=== PATIENT | male | born 1955 | race Caucasian/White ===

== ENCOUNTER 2022-07-01 07:59 | Outpatient (CLI) | payer MEDICARE, BC, SELFPAY ==
--- NOTE | 2022-07-01 08:15 | CRLHL7_ITS ---
For Patients: As a result of the Century Cures Act, medical imaging exams and procedure reports are released immediately into your electronic medical record. You may view this report before your referring provider. If you have questions, please contact your health care provider. Indication: Left hip pain Procedure : Informed consent was obtained. The site was marked. Time-out was performed. The skin of the left hip was cleansed with ChloraPrep. A sterile drape was placed. 8 cc of 1 percent lidocaine was administered for superficial anesthesia. Subsequently a 22 gauge spinal needle was introduced into the left hip joint under intermittent fluoroscopic guidance. 7 cc 1 percent lidocaine and 2 cc 40 milligram/cc Depo-Medrol then injected into the left hip joint. The needle was removed and hemostasis achieved with direct pressure. A dressing was placed. The patient tolerated the procedure well without immediate complication. Total fluoroscopy time 11 seconds. Impression: Successful fluoroscopically guided left hip injection with 80 milligrams of Depo-Medrol. Dictated by Hansel Chi MD @ 07/01/2022 9:18:43 AM (Electronically Signed)
== END 2022-07-01 08:00 | disposition home or self-care (01) ==
PROVIDERS: PCP Family Medicine; Visit Provider Orthopaedic Surgery Sports Medicine
DX: M25.552 Pain in left hip (principal)
CPT/HCPCS: 20610; 77002; J1030

== ENCOUNTER 2022-07-14 06:26 | Day surgery (SDC) | payer MEDICARE, BC, SELFPAY ==
[2022-07-14] VITALS (8 sets, daily range): BP systolic 119–139; BP diastolic 69–83; PULSE 57–61; RESP 16–18; TEMP 36.4–37.1; O2SAT 95–98; BMI 35.6
[2022-07-14] MEDS: BUPIVACAINE 0.5% 30 ML INJECTION (06:50)
[2022-07-14] MEDS: ETHYL CHLORIDE 1 APPLICATION 1 APPLIC TOPICAL (06:50)
--- NOTE | 2022-07-14 07:05 | SUR.PREOP ---
SAME DAY SURGERY LOCAL INJECTION SITE VERIFICATION WAS PERFORMED BY SURGEON AND PATIENT PRIOR TO LOCAL ANESTHETIC BEING INJECTED TO OPERATIVE SITE.
[2022-07-14] MEDS: NEOMYCIN/BACITRACIN/POLYMYXIN B 1 APPLIC TOPICAL (07:42)
--- NOTE | 2022-07-14 08:38 | PM.ORPRC ---
Procedure Note Date of procedure: 07/14/22 Procedure: PREOPERATIVE DIAGNOSIS: 1. Left carpal tunnel syndrome POSTOPERATIVE DIAGNOSIS: 1. Left carpal tunnel syndrome PROCEDURE: 1. Left open carpal tunnel release SURGEON: Shukri Ortiz MD. TRAFFIC OBSERVER: Armand Mac PA-C ANESTHESIA: Local anesthetic (50:50 mixture of 2% lidocaine with epi and 0.5% marcaine plain) IMPLANTS: None EBL: 2 mL TOURNIQUET: None COMPLICATIONS: None evident INDICATIONS: The patient is a pleasant 67-year-old male who has experienced left hand numbess/tingling affecting the radial 3.5 digits for multiple months. It has progressively gotten worse. Nonoperative management has been tried and failed, and therefore surgery was recommended. DESCRIPTION OF PROCEDURE: Following a thorough discussion of risks, benefits, and alternatives consent was obtained and the operative extremity was marked. The patient was brought to the operating room and placed supine on the operating table. Local anesthesia induction was undertaken in preop holding. No antibiotics were administered as this was planned to be a local case only. Proper time-out was performed identifying proper patient, site, and procedure. The operative extremity was prepped and draped in the appropriate sterile fashion using ChloraPrep. An incision was made in line with the radial border of the ring finger beginning 1 cm distal to the distal wrist crease and progressing for another 2.5cm distal. Caution was taken to stay proximal to Mcneill's cardinal line. Sharp incision through the skin, subcutaneous tissue, and palmar fascia was performed. The thenar musculature was bluntly elevated off the transverse carpal ligament. The ligament was directly visualized, and divided sharply with a 15 blade. This was released from its most proximal to the most distal extent. Metzenbaum scissor was also utilized to release the fascia extension proximally. We confirmed complete release of the transverse carpal ligament. Closure was performed with 4-O nylon in interrupted fashion. Soft dressings were applied, and the patient was transferred to the recovery room in stable condition. PLAN: 1. Encourage elevation of the operative extremity. 2. Range of motion of the fingers and hand/wrist as tolerated. 3. Ibuprofen/acetaminophen and/or Percocet as needed for pain control. 4. Follow up with PA visit or nurse visit in 12-16 days for wound check and suture removal.
== END 2022-07-14 08:02 | disposition home or self-care (01) ==
PROVIDERS: PCP Family Medicine; Visit Provider Orthopaedic Surgery Sports Medicine
PROC: (CPT 64721; principal; 2022-07-14 07:30)
DX: G56.02 Carpal tunnel syndrome, left upper limb (principal)
CPT/HCPCS: 64721; J3490

== ENCOUNTER 2022-09-01 06:10 | Day surgery (SDC) | payer MEDICARE, BC, SELFPAY ==
[2022-09-01] VITALS (7 sets, daily range): BP systolic 128–145; BP diastolic 70–92; PULSE 59–65; RESP 14–18; TEMP 36.2–36.5; O2SAT 9–97; BMI 35.4
[2022-09-01] MEDS: BUPIVACAINE 0.5% 30 ML INJECTION (07:00)
--- NOTE | 2022-09-01 07:26 | SUR.PREOP ---
SAME DAY SURGERY LOCAL INJECTION SITE VERIFICATION WAS PERFORMED BY SURGEON/PA AND PATIENT PRIOR TO LOCAL ANESTHETIC BEING INJECTED TO OPERATIVE SITE.
--- NOTE | 2022-09-01 07:29 | P.ORPRC_ITS ---
Procedure Note Date of procedure: 09/01/22 Procedure: PREOPERATIVE DIAGNOSIS: 1. Right carpal tunnel syndrome POSTOPERATIVE DIAGNOSIS: 1. Right carpal tunnel syndrome PROCEDURE: 1. Right open carpal tunnel release SURGEON: Shukri Ortiz MD. SENIOR HARDWARE DESIGN ENGINEER: Armand Mac PA-C ANESTHESIA: Local anesthetic (50:50 mixture of 1% lidocaine with epi and 0.5% marcaine plain) IMPLANTS: None EBL: 2 mL TOURNIQUET: None COMPLICATIONS: None evident INDICATIONS: The patient is a pleasant 67-year-old male who has experienced right hand numbess/tingling affecting the radial 3.5 digits for multiple months. It has progressively gotten worse. Nonoperative management has been tried and failed, and therefore surgery was recommended. DESCRIPTION OF PROCEDURE: Following a thorough discussion of risks, benefits, and alternatives consent was obtained and the operative extremity was marked. The patient was brought to the operating room and placed supine on the operating table. Local anesthesia induction was undertaken in preop holding. No antibiotics were administered as this was planned to be a local case only. Proper time-out was performed identifying proper patient, site, and procedure. The operative extremity was prepped and draped in the appropriate sterile fashion using ChloraPrep. An incision was made in line with the radial border of the ring finger beginning 1 cm distal to the distal wrist crease and progressing for another 2.5cm distal. Caution was taken to stay proximal to Mcneill's cardinal line. Sharp incision through the skin, subcutaneous tissue, and palmar fascia was performed. The thenar musculature was bluntly elevated off the transverse carpal ligament. The ligament was directly visualized, and divided sharply with a 15 blade. This was released from its most proximal to the most distal extent. Metzenbaum scissor was also utilized to release the fascia extension proximally. We confirmed complete release of the transverse carpal ligament. Closure was performed with 4-O nylon in interrupted fashion. Soft dressings were applied, and the patient was transferred to the recovery room in stable condition. PLAN: 1. Encourage elevation of the operative extremity. 2. Range of motion of the fingers and hand/wrist as tolerated. 3. Ibuprofen/acetaminophen and/or Percocet as needed for pain control. 4. Follow up with PA visit or nurse visit in 12-16 days for wound check and suture removal.
== END 2022-09-01 07:50 | disposition home or self-care (01) ==
PROVIDERS: PCP Family Medicine; Visit Provider Orthopaedic Surgery Sports Medicine
PROC: (CPT 64721; principal; 2022-09-01 07:15)
DX: G56.01 Carpal tunnel syndrome, right upper limb (principal)
CPT/HCPCS: 64721; J3490

== ENCOUNTER 2023-01-03 08:45 | Outpatient (RCR) | payer MEDICARE, BC, SELFPAY | END 2023-05-03 23:59 | disposition home or self-care (01) | PROVIDERS: PCP Family Medicine; Visit Provider Student in an Organized Health Care Education/Training Program | DX: R47.01 Aphasia (principal); I63.412 Cerebral infarction due to embolism of left middle cerebral artery; Z98.890 Other specified postprocedural states; M25.552 Pain in left hip; R53.1 Weakness; Z51.89 Encounter for other specified aftercare | CPT/HCPCS: 92507; 92523; 97165; 97535 ==

== ENCOUNTER 2023-08-13 09:21 | Outpatient (CLI) | payer MEDICARE, BC, SELFPAY ==
--- OUTSIDE RECORDS SUMMARY | 2023-08-13 09:29 | XMS_ITS | Clinical Summary ---
Author Name Unknown Organization [facility] Address [place], [place] [address] Care Team Providers Care Mortgage Clerk Name Role Phone Brian Garcia MD Primary Care Provider Hansel Buchanan MD Unavailable Soraya Wang Unavailable [phone] Allergies No known active allergies Medications Medication Sig Dispensed Refills Start Date End Date Status aspirin (ECOTRIN) 81 mg enteric coated tablet Take 1 tablet by mouth once daily with a meal. 0 5 Active nitroglycerin (NITROSTAT) 0.4 mg sublingual tabletIndications:C oronary artery disease due to lipid rich plaque PLACE 1 TABLET UNDER TONGUE EVERY 5 MINUTES IF NEEDED FOR CHEST PAIN. 25 Tablet 1 2 Active blood-glucose meterIndications:Ty pe 2 diabetes mellitus with other specified complication, without long-term current use of insulin (HC) Inject subcutaneous. Dispense meter, test strips, lancets covered by pt ins. E11.9 NIDDM type II - Test 1 time/day 1 Each 0 3 Active blood sugar diagnostic (Blood Glucose Test) stripIndications:Ty pe 2 diabetes mellitus with other specified complication, without long-term current use of insulin (HC) Test one time per day. 100 Each 3 3 Active acetaminophen (TYLENOL) 325 mg tablet Take 2 Tablets (650 mg) by mouth every 6 hours. Max acetaminophen dose: 4000mg in 24 hrs. 0 3 Active metoprolol succinate (TOPROL XL) 50 mg sustained-release tabletIndications:C oronary artery disease due to lipid rich plaque Take 1 Tablet (50 mg) by mouth once daily. 90 Tablet 3 3 Active rosuvastatin (CRESTOR) 40 mg tabletIndications:M ixed hyperlipidemia TAKE 1 TABLET DAILY 90 Tablet 3 3 Active CPAPIndications:JO (obstructive sleep apnea) CPAP machine for home use at pressure: 5-16 cmw , Heated humidifier x 1 q 5 yr, Humidifier chamber x 1 q 6 mo, nasal mask x1 q 3mos, with cushion x 2 q mo, Heated tubing x 1 q 3 mo, Headgear x 1 q 6 mo, Filters: Disposable x 2 q mo non-disposable filters x1 q 6mo, Length of Need: 99 months, Frequency of use: Daily 1 Each 11 3 Active metFORMIN (GLUCOPHAGE XR) 500 mg Extended-Release tabletIndications:T ype 2 diabetes mellitus with other specified complication, without long-term current use of insulin (HC) Take 2 Tablets (1,000 mg) by mouth once daily with evening meal. 180 Tablet 1 4 Active empagliflozin (JARDIANCE) 10 mg tabletIndications:T ype 2 diabetes mellitus with other specified complication, without long-term current use of insulin (HC) Take 1 Tablet (10 mg) by mouth once daily. 30 Tablet 5 4 Active metFORMIN sustained release (GLUMETZA) 500 mg tabletIndications:T ype 2 diabetes mellitus treated without insulin (HC) Take 2 Tablets (1,000 mg) by mouth once daily with evening meal. 180 Tablet 1 3 08/02/19 24 Discontinu ed(*Med complete/R egimen complete/L evel of care change) metFORMIN (GLUCOPHAGE XR) 500 mg Extended-Release tabletIndications:T ype 2 diabetes mellitus with other specified complication, without long-term current use of insulin (HC) TAKE 2 TABLETS(1000 MG) BY MOUTH EVERY DAY WITH THE EVENING MEAL 60 Tablet 0 3 08/02/19 24 Discontinu ed(Reorder (E-cancel not sent)) Active Problems Problem Noted Date Diagnosed Date Class 1 obesity due to exces s calories with serious comorbidity and body mass index (BMI) of 33.0 to 33.9 in adult 12/16/2022 Type 2 diabetes mellitus treated without insulin 09/08/2021 Bilateral carotid artery stenosis 07/21/2016 History of tobacco abuse; quit 201406/09/2015 CAD (coronary artery disease) 06/09/2015 Overview: RODRI to RCA and LAD, Plavix for one yr. 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 10/07/2022 Global aphasia S/P carotid endarterectomy 10/07/2022 Resolved Problems Problem Noted Date Diagnosed Date Resolved Date Carotid artery stenosis 09/09/201510/11 Prediabetes 08/08/2015 09/14/2022 Coronary artery disease due to lipid rich plaque 06/13/2015 11/07/2017 Exertional angina 11/07/2017 Obstructive sleep apnea (adult) (pediatric) 11/07/2017 Overview: cpap Encounters Date Type Department Care Team Description 08/04/2023 Orders Only [facility] [address] [place] [address] Inocencia Guevara MD 1 scan: (1-Ord) NFLD-EKG-08/02/23 08/02/2023 9:15 AM RETAIL SALES MERCHANDISER Preop Visit [facility] [address] [place] [address] Brian Garcia MD Preoperative Exam (08/15/23 Left Hip Replacement/[facility]/Dr. Gamble ); Follow Up (Medication refills /Diabetes ) 08/02/2023 8:30 AM RETAIL SALES MERCHANDISER Office Visit [facility] [address] [place] [address] Inocencia Guevara MD Follow Up (Coronary artery disease involving s[place]ovia coronary artery of [place]ia heart without angina pectoris) 08/02/2023 Telephone [facility] [address] [place] [address] Brian Garcia MD Follow Up 08/01/2023 Travel 07/10/2023 Refill [facility] [address] [place] [address] Brian Garcia MD Refill Request (Metformin) 07/08/2023 Refill [facility] [address] [place] [address] Brian Garcia MD Refill Request (Metformin) 07/07/2023 8:40 AM RETAIL SALES MERCHANDISER Orders Only [facility] [address] [place] [address] Lab, [facility] 07/07/2023 Travel 06/11/2023 Refill [facility] [address] [place] [address] Brian Garcia MD Refill Request (Metformin) 06/09/2023 Refill [facility] [address] [place] [address] Brian Garcia MD Refill Request (Metformin) 06/07/2023 8:00 AM RETAIL SALES MERCHANDISER Telemedicine [facility] [address] [place] [address] Sarita Avendano, POOLROOM TABLE ATTENDANT Telehealth (Phone visit, no vitals taken. Follow up sleep ) 06/07/2023 Travel from Last 3 Months Immunizations Name Administration Dates Next Due COVID-19 vaccine ([employer] 30mcg/0.3mL) FERN DEUTSCH 05/21/2021,10/07/2020,09/16/2020 Influenza, High-dose Inactivated 06/01/2019 Influenza, High-dose Quadriv alent Inactivated 04/25/2020 Influenza, IIV4 08/29/2018 Influenza, Inactivated AIIV4 (Age 65+ Years) Preserv Free 06/11/2022 Pneumococcal Poly,23-Valent (Pneumovax) 06/11/20 20 Pneumococcal conj 13-Valent (Prevnar 13) 019 Tdap 03/04/2014 Zoster (Shingrix-RZV, recombinant) 01/05/2022, Family History Medical History Relation Name Comments Heart Disease Neg. Cancer-colon Other Anesthesia Problem No Family History Cancer-prostate No Family History Diabetes No Family History Relation Name Status Comments Neg. Other Social History Tobacco Use Types Packs/Day Years Used Date Smoking Tobacco: Former Cigarettes 0.8 43 1 973 - 2016 Smokeless Tobacco: Never Tobacco Cessation:Counseling Given: Yes Alcohol Use Standard Drinks/Week Comments Yes 0 (1 standard drink = 0.6 oz pure alcohol) occasional, approx 1 to 3 per week PHQ-2 Answer Date Recorded PHQ-2 TOTAL SCORE 3 12/16/2022 Social Connections Answer Date Recorded Frequency of Communication with Friends and Fami ly 0 10/14/2022 Financial Resource Strain Answer Date R ecorded Difficulty of Paying Living Expenses 3 10/14/2022 Difficulty of Paying Living Expenses Not on file 10/14/2022 Food Insecurity Answer Date Recorded Worried About Running Out of Food in the Last Ye ar 1 10/14/2022 Transportation Needs Answer Date Record ed Lack of Transportation (Medical) 1 10/14/2022 Housing Stability Answer Date Recorded Unable to Pay for Housing in the Last Year 1 10/14/2022 Sex and Gender Information Value Date Recorded Sex Assigned at Not on file Gender Identity Not on file Sexual Orientation Not on file Obstetrics History Last Filed Vital Signs Vital Sign Reading Time Taken Comments Blood Pressure 125/77 08/02/2023 9:15 AM RETAIL SALES MERCHANDISER Pulse 65 08/02/2023 9:15 AM RETAIL SALES MERCHANDISER Temperature 36.2 ??C (97.1 ??F) 08/02/2023 9:15 AM CS T Respiratory Rate 16 08/02/2023 9:15 AM RETAIL SALES MERCHANDISER Oxygen Saturation 98% 08/02/2023 9:15 AM RETAIL SALES MERCHANDISER Inhaled Oxygen Concentration - - Weight 105.2 kg (232 lb) 08/02/2023 9:15 AM RETAIL SALES MERCHANDISER Height 176.5 cm (5' 9.49) 08/02/2023 9:15 AM CS T Body Mass Index 33.78 08/02/2023 9:15 AM RETAIL SALES MERCHANDISER Plan of Treatment Health Maintenance Due Date Last Done Comments AAA screening age 65-74 2019 08/18/2017 COVID-19 vaccine series ( season) 2023 05/21/2021, 10/07/2020, 09/16/2020 Influenza for age 65+ 03/11/2023 06/11/2022 , 04/25/2020, 06/01/2019, Additional history exists Medicare Wellness for age 65+ 12/16/2023, 09/08/2021, 09/19/2020 Depression screening for age 12+ 12/17/2023 12/16/2022, 12/16/2022, 09/08/2021, Additional history exists Low Dose CT (for lung CA) ag e 50-80 01/04/2024 01/03/2023 Fecal testing non-DNA (FIT,FOBT,iFOBT) for age 45-75 01/28/2024 01/27/2023, 09/10/2021, 01/04/2020, Additional history exists Tetanus booster 03/04/2024 03/04/2014 BMI (ht and wt on same day) for age 18+ 08/02/2024 08/02/2023, 12/16/2022, 11/18/2022, Additional history exists Lipids for age 45-75 07/07/2028 07/07/2023, 12/13/2022, 10/08/2022, Additional history exists Tdap Completed 03/04/2014 Hepatitis C screening for ag e 18-79 Completed 10/09/2018 Pneumococcal series for age 65+ Completed , 06/01/2019 Zoster (shingles) series for age 50+ Completed 01/05/2022, 09/17/2021 Medical Devices Implanted Type Area Property Inspector Device Identifier Shelf Expiration Date Model / Serial / Lot Tissue Pericardium 0.8x8cm Xenosure - [id number] Implanted:Qty: 1 on 10/07/2022 by Roger Finn MD at [facility] Left: Carotid Artery [employer] 05/07/2028 0.8P8 / / [id number] Procedures Procedure Name Priority Date/Time Associated Diagnosis Comments EKG 12 LEAD Routine 08/04/2023 9:05 AM RETAIL SALES MERCHANDISER Coronary artery disease involving [place] coronary artery of [place] heart without angina pectoris POTASSIUM Routine 08/02/2023 9:53 AM RETAIL SALES MERCHANDISER Preop examination HEMOGLOBIN Routine 08/02/2023 9:53 AM RETAIL SALES MERCHANDISER Preop examination URINE ALBUMIN TO CREATININE RATIO, RANDOM Routine 07/07/2023 8:53 AM RETAIL SALES MERCHANDISER Type 2 diabetes mellitus treated without insulin (HC) VITAMIN D 25 (DEFICIENCY) Routine 07/07/2023 8:49 AM RETAIL SALES MERCHANDISER Atherosclerosis of [place] coronary artery of [place] heart without angina pectoris Vitamin D deficiency PSA TOTAL SCREEN Routine 07/07/2023 8:49 AM RETAIL SALES MERCHANDISER Prostate cancer screening LIPID PANEL W REFLEX MEASURED LDL Routine 07/07/2023 8:49 AM RETAIL SALES MERCHANDISER Pure hypercholesterolemia Coronary artery disease involving [place] coronary artery of [place] heart without angina pectoris COMP METABOLIC PANEL Routine 07/07/2023 8:49 AM RETAIL SALES MERCHANDISER Coronary artery disease involving [place] coronary artery of [place] heart without angina pectoris CK TOTAL Routine 07/07/2023 8:49 AM RETAIL SALES MERCHANDISER Coronary artery disease involving [place] coronary artery of [place] heart without angina pectoris HEMOGLOBIN A1C Routine 07/07/2023 8:49 AM RETAIL SALES MERCHANDISER Type 2 diabetes mellitus treated without insulin (HC) from Last 3 Months Results * EKG 12 LEAD (08/04/2023 9:05 AM RETAIL SALES MERCHANDISER) Inocencia Guevara MD EKG ORD * HEMOGLOBIN (08/02/2023 9:53 AM RETAIL SALES MERCHANDISER) HEMOGLOBIN 15.1 13.5 - 17.5 g/dL 08/02/2023 10:03 AM RETAIL SALES MERCHANDISER [facility] MCV 93 80 - 100 fL 08/02/2023 10:03 AM RETAIL SALES MERCHANDISER [facility] Blood BLOOD SPECIMEN / Unknown Venipuncture / Unknown 08/02/2023 9:53 AM RETAIL SALES MERCHANDISER 08/02/2023 9:54 AM RETAIL SALES MERCHANDISER Brian Garcia MD HEMATOLOGY [facility] [address] [place] [address], * POTASSIUM (08/02/2023 9:53 AM RETAIL SALES MERCHANDISER) POTASSIUM 4.5 3.5 - 5.1 mmol/L 08/02/2023 5:42 PM RETAIL SALES MERCHANDISER [facility] Blood BLOOD SPECIMEN / Unknown Venipuncture / Unknown 08/02/2023 9:53 AM RETAIL SALES MERCHANDISER 08/02/2023 9:54 AM RETAIL SALES MERCHANDISER Brian Garcia MD CHEMISTRY [facility] [address] [place] [address], [place] * (ABNORMAL) URINE ALBUMIN TO CREATININE RATIO, RANDOM (07/07/2023 8:53 AM RETAIL SALES MERCHANDISER) ALB RAND URINE 267.0 mg/L 07/07/2023 4:20 PM RETAIL SALES MERCHANDISER [facility] CREATININE,URIN E 0.91 g/L 07/07/2023 4:20 PM RETAIL SALES MERCHANDISER [facility] ALBUMIN TO CREATININE RATIO,RAND UR 293.4(H) <30.0 mg/g creat 07/07/2023 4:20 PM RETAIL SALES MERCHANDISER [facility] Urine URINE SPECIMEN / Unknown Non-Blood / Unknown 07/07/2023 8:53 AM RETAIL SALES MERCHANDISER 07/07/2023 8:53 AM RETAIL SALES MERCHANDISER Narrative [facility] - 07/07/2023 4:20 PM RETAIL SALES MERCHANDISER If Albumin to Creatinine Ratio is elevated, consider the following: ? Elevations seen with incipient nephropathy associated ?? with diabetes mellitus or hypertension. Stress, exercise,hematuria, ?? and urinary tract infection may also produce elevated results. If clinically indicated, confirm with ?24 Hour Albumin to Creatinine Ratio. ?? Brian Garcia MD URINE [facility] [address] [place] [address], [place] * LIPID PANEL W REFLEX MEASURED LDL (07/07/2023 8:49 AM RETAIL SALES MERCHANDISER) CHOLESTEROL,TOTAL 148 100 - 199 mg/dL 07/07/2023 4:21 PM RETAIL SALES MERCHANDISER [facility] Comment: Cholesterol, Total Reference Ranges Desirable <200 mg/dL Borderline 200-239 mg/dL High >=240 mg/dL TRIGLYCERIDES 146 <150 mg/dL 07/07/2023 4:21 PM RETAIL SALES MERCHANDISER [facility] HDL CHOLESTEROL 57 >40 mg/dL 4:21 PM RETAIL SALES MERCHANDISER [facility] NON-HDL CHOLESTEROL 91 <145 mg/dl 07/07/2023 4:21 PM RETAIL SALES MERCHANDISER [facility] CHOL/HDL RATIO 2.60 <4.50 07/07/2023 4:21 PM RETAIL SALES MERCHANDISER [facility] LDL CHOLESTEROL 62 <=130 mg/dL 07/07/2023 4:21 PM RETAIL SALES MERCHANDISER [facility] VLDL CHOLESTEROL 29 <=30 mg/dL 07/07/2023 4:21 PM RETAIL SALES MERCHANDISER [facility] PROVIDER ORDERED STATUS FASTING 07/07/2023 4:21 PM RETAIL SALES MERCHANDISER [facility] Blood BLOOD SPECIMEN / Unknown Venipuncture / Unknown 07/07/2023 8:49 AM RETAIL SALES MERCHANDISER 07/07/2023 8:50 AM RETAIL SALES MERCHANDISER Soraya PERES CHEMISTRY [facility] [address] [place] [id number] * VITAMIN D 25 (DEFICIENCY) (07/07/2023 8:49 AM RETAIL SALES MERCHANDISER) VITAMIN D TOTAL 35.1 20.0 - 80.0 ng/mL 07/07/2023 4:21 PM RETAIL SALES MERCHANDISER [facility] Blood BLOOD SPECIMEN / Unknown Venipuncture / Unknown 07/07/2023 8:49 AM RETAIL SALES MERCHANDISER 07/07/2023 8:50 AM RETAIL SALES MERCHANDISER Narrative [facility] - 07/07/2023 4:21 PM RETAIL SALES MERCHANDISER ? Vitamin D Status Deficiency: ? <20 ng/mL Insufficiency: ?20-29 ng/mL Sufficiency: ?30-80 ng/mL Possible Toxicity: ??>80 ng/mL Based on [place] of Medicine recommendations Biotin supplements may cause clinically significant interference for this test assay. ??If interference is suspected, it is strongly recommended that biotin is discontinued for at least one week prior to retesting. Soraay PERES SEND OUTS Performing Organization Address City/[facility]/ZIP Co de Phone Number [facility] [address] [place] [address], [place] * HEMOGLOBIN A1C MONITORING (POCT) (07/07/2023 8:49 AM RETAIL SALES MERCHANDISER) [facility] HEMOGLOBIN A1C MONITORING (POCT) 6.0 <=6.4 % 07/07/2023 9:05 AM RETAIL SALES MERCHANDISER [facility] Blood BLOOD SPECIMEN / Unknown Venipuncture / Unknown 07/07/2023 8:49 AM RETAIL SALES MERCHANDISER 07/07/2023 8:50 AM RETAIL SALES MERCHANDISER Narrative [facility] - 07/07/2023 9:05 AM RETAIL SALES MERCHANDISER ? (<=6.9%) ? Indicates good control ? (7.0% to 7.9%) ? Indicates fair control ? (>=8.0%) ? Indicates poor control ?? NOTE: ??These thresholds are guidelines and ?individual targets may vary. Falsely low levels may be seen with: Recent Transfusion, Recent Significant Blood Loss, Hemolytic Diseases, or Falsely elevated levels may be seen with: Untreated Anemias, Splenectomy ? Brian Garcia MD CHEMISTRY Performing Organization Address [facility]/ZIP Co de Phone Number [facility] [address] [place] [address], [place] [phone] * CK TOTAL (07/07/2023 8:49 AM RETAIL SALES MERCHANDISER) [facility] CK,TOTAL 81 39 - 308 IU/L 07/07/2023 4:48 PM [facility] Blood BLOOD SPECIMEN / Unknown Venipuncture / Unknown 07/07/2023 8:49 AM RETAIL SALES MERCHANDISER 07/07/2023 8:50 AM RETAIL SALES MERCHANDISER Soraya PERES CHEMISTRY [facility] [address] [place] [address], * (ABNORMAL) COMP METABOLIC PANEL (07/07/2023 8:49 AM RETAIL SALES MERCHANDISER) SODIUM 141 136 - 145 mmol/L 07/07/2023 4:21 PM [facility] POTASSIUM 4.4 3.5 - 5.1 mmol/L 07/07/2023 4:21 PM [facility] CHLORIDE 105 98 - 107 mmol/L 07/07/2023 4:21 PM [facility] CO2,TOTAL 26 22 - 29 mmol/L 07/07/2023 4:21 PM [facility] ANION GAP 10 5 - 18 07/07/2023 4:21 PM [facility] GLUCOSE 123(H) 70 - 99 mg/dL 07/07/2023 4:21 PM [facility] CALCIUM 9.9 8.8 - 10.2 mg/dL 07/07/2023 4:21 PM [facility] BUN 13 8 - 23 mg/dL 07/07/2023 4:21 PM [facility] CREATININE 0.76 0.70 - 1.20 mg/dL 07/07/2023 4:21 PM [facility] BUN/CREAT RATIO 17 10 - 20 4:21 PM [facility] eGFR >90 >90 mL/min/1.7 3m2 07/07/2023 4:21 PM [facility] Comment:As of 2021, eG FR is calculated by the CKD-EPI creatinine equation without race adjustment. ??eGFR can be influenced by muscle mass, exercise, and diet. ??The reported eGFR is an estimation only and is only applicable if the renal function is stable. ALBUMIN 4.6 4.0 - 4.9 g/dL 07/07/2023 4:21 PM RETAIL SALES MERCHANDISER [facility] PROTEIN,TOTAL 7.0 6.0 - 8.0 g/dL 07/07/2023 4:21 PM RETAIL SALES MERCHANDISER [facility] BILIRUBIN,TOTAL 0.5 0.0 - 1.2 mg/dL 07/07/2023 4:21 PM RETAIL SALES MERCHANDISER [facility] ALK PHOSPHATASE 90 40 - 129 IU/L 07/07/2023 4:21 PM RETAIL SALES MERCHANDISER [facility] ALT (SGPT) 32 10 - 50 IU/L 07/07/2023 4:21 PM RETAIL SALES MERCHANDISER [facility] AST (SGOT) 27 10 - 50 IU/L 07/07/2023 4:21 PM RETAIL SALES MERCHANDISER [facility] Blood BLOOD SPECIMEN / Unknown Venipuncture / Unknown 07/07/2023 8:49 AM RETAIL SALES MERCHANDISER 07/07/2023 8:50 AM RETAIL SALES MERCHANDISER Soraya PERES CHEMISTRY [facility] [address] [place] [address], * PSA TOTAL SCREEN - Dx Auto-associated (07/07/2023 8:49 AM RETAIL SALES MERCHANDISER) PSA TOTAL (SCREEN) 0.73 <4.00 ng/mL 07/07/2023 4:21 PM RETAIL SALES MERCHANDISER [facility] Blood BLOOD SPECIMEN / Unknown Venipuncture / Unknown 07/07/2023 8:49 AM RETAIL SALES MERCHANDISER 07/07/2023 8:50 AM RETAIL SALES MERCHANDISER Narrative [facility] - 07/07/2023 4:21 PM RETAIL SALES MERCHANDISER The test method changed on 01/04/2023. If this test has been used for serial monitoring, rebaselining is recommended. Rebaselining consists of 2 measurements, collected 3-6 weeks apart. The [employer] total PSA assay is an electrochemiluminescence immunoassay ECLIA performed on the [employer] Jojo e immunoassay analyzers. Values obtained with different assay methods may be different and cannot be used interchangeably. Brian Garcia MD LABORATORY [facility] [address] [address], from Last 3 Months Advance Directives Latest Code Status on File Code Status Date Activated Date Inactivated Comments Full Code 10/07/2022 1:31 PM 10/11/2022 2:06 PM Question Answer Comments Code Status Discussion: Reviewed Preferences Code Status History Code Status Date Activated Date Inactivated Comments Full Code 10/07/2022 6:00 AM 10/07/2022 1:31 PM Question Answer Comments Code Status Discussion: Unable to Assess Preferences, Provider to review later Full Code 06/09/2015 7:34 AM 06/10/2015 11:25 AM Care Teams Mortgage Clerk Relationship Specialty Start Date End Date Brian Garcia MD [address] [place] [address] PCP - General Family Practice 07/29/15 Hansel Buchanan MD [address] [place] [address] Cardiovascular Disease 05/24/15 Soryaa Wang PA [address] [place] [address] Physician Cfa 11/04/20
--- OUTSIDE RECORDS SUMMARY | 2023-08-13 09:29 | XMS_ITS | Continuity of Care Document ---
Author Name Unknown Organization [facility] Address [address] [place] [address] Phone Care Team Providers Care Equipment Superintendent Name Role Phone Ten Candelario MD Unavailable Unavailable Allergies, Adverse Reactions, Alerts Substance Reaction Status Criticality No Known Allergies Active No Inform ation Medications Medication Instructions Dosage Effective Dates (start - stop) Status Comments NITROGLYCERIN (unknown strength) Not Available - Active NAPROXEN (unknown strength) Not Available - Active METOPROLOL SUCCINATE (unknown strength) Not Available - Active CYCLOBENZAPRINE HCL (unknown strength) Not Available - Active ATORVASTATIN CALCIUM (unknown strength) Not Available - Active ASPIRIN EC (unknown strength) Not Available - Active Procedures Procedure Date Office/Outpatient Visit,Est, Mod 2018 Office/Outpatient Visit,New, Mod 2017 Advance Directives Directive Yes / No Effective Date File Name No Information Encounters Encounter Description Practice Location Reason(s) For Visit Diagnoses Date Provider Providers Copied on Encounter [facility], [address], [place], [id number], [place] tel:[phone] [facility] [place] No Information Andree Caal. [facility] [place], [address] [place] [address], [address], [place], [place], [id number] , [place]. tel:[phone] Office/Outpat ient Visit,Est, Mod [facility], [address], [place], [id number], [place] tel:[phone] [facility] - [place] Spinal stenosis, lumbar region with neurogenic claudication Brandy Ruggiero. [facility], [address], [place], [address], [place]. tel:[phone] Referring Provider: Brian Barros, [facility] [address] [facility], [place], [address]. tel:[phone] Office/Outpat ient Visit,New, Mod [facility], [address], [place], [id number], [place] tel:[phone] [facility] Spinal stenosis, lumbar region with neurogenic claudication Brandy Ruggiero. [facility] [place], [address], [place], [address], [place]. tel:[phone] Referring Provider: Ashish Lester, [facility] [address] [facility], [place], [address]. tel:[phone] [facility], [address], [place], [id number], [place] tel:[phone] [facility] Spinal stenosis, lumbar region with neurogenic claudication Brandy Ruggiero. [facility] [place], [address], [place], [address], [place]. tel:[phone] Family History Family Member Type Diagnosis Age At Onset No Information Payers Payer name Insurance type Covered democrat ID Authorisabelchantale mayes(s) BCBS [id number] [facility] [id number] Social History Type Description Quantity Date Captured Comments Sex Male Smoking Status No Information Chief Complaint And Reason For Visit No Information Reason For Referral Reason For Referral No Information History Of Present Illness Encounter Date Complaint History Of Prese nt Illness No Information Functional Status Date Functional Assessmen t No Information Instructions Date Instruction Additional Infor mation No Information Assessments Type Assessment Date No Information Patient Care Teams Name Effective Dates (start - stop) Status Members No Information
== END 2023-08-13 09:22 | disposition home or self-care (01) ==
LOC: LAB 09:23
PROVIDERS: PCP Family Medicine; Visit Provider Orthopaedic Surgery Sports Medicine
DX: Z01.818 Encounter for other preprocedural examination (principal)
CPT/HCPCS: 36415; 86850; 86900; 86901

== ENCOUNTER 2023-08-15 09:49 | Day surgery (SDC) | payer MEDICARE, BC, SELFPAY ==
[2023-08-15] VITALS (32 sets, daily range): BP systolic 114–197; BP diastolic 67–139; PULSE 53–94; RESP 12–16; TEMP 35.7–36.8; O2SAT 93–100; BMI 34.2
[2023-08-15] MEDS: OXYCODONE (CR) 10 MG TAB.ER.12H PO (08:22)
[2023-08-15] MEDS: ACETAMINOPHEN 500 MG TABLET 1000 MG PO ×3 (08:22→23:57)
[2023-08-15] MEDS: MIDAZOLAM HCL 1 MG/ML inj IVP (08:23)
[2023-08-15] MEDS: fentaNYL 100 MCG/2 ML inj IVP (08:23)
[2023-08-15] MEDS: LACTATED RINGERS 1000 ML 1,000 ML 100 ML IV ×2 (08:25→12:32)
--- OUTSIDE RECORDS SUMMARY | 2023-08-15 09:52 | XMS_ITS | Continuity of Care Document ---
Author Name Unknown Organization [facility] Address [address] [place] [address] Phone Care Team Providers Care Drilling Supervisor Name Role Phone Ten Candelario MD Unavailable Unavailable Allergies, Adverse Reactions, Alerts Substance Reaction Status Criticality No Known Allergies Active No Inform ation Medications Medication Instructions Dosage Effective Dates (start - stop) Status Comments ASPIRIN EC (unknown strength) Not Available - Active ATORVASTATIN CALCIUM (unknown strength) Not Available - Active CYCLOBENZAPRINE HCL (unknown strength) Not Available - Active METOPROLOL SUCCINATE (unknown strength) Not Available - Active NAPROXEN (unknown strength) Not Available - Active NITROGLYCERIN (unknown strength) Not Available - Active Procedures Procedure Date Office/Outpatient Visit,Est, Mod 2018 Office/Outpatient Visit,New, Mod 2017 Advance Directives Directive Yes / No Effective Date File Name No Information Encounters Encounter Description Practice Location Reason(s) For Visit Diagnoses Date Provider Providers Copied on Encounter [facility], [address], [place], [id number], [place] tel:[phone] [facility] No Information Andree Caal. [facility] [place], [address] [place] [address], [address], [place], [place], [id number] , [place]. tel:[phone] Office/Outpat ient Visit,Est, Mod [facility], [address], [place], [id number], [place] tel:[phone] [facility] [place] Spinal stenosis, lumbar region with neurogenic claudication Brandy Ruggiero. [facility], [address], [place], [address], [place]. tel:[phone] Referring Provider: Brian Barros, [facility] [address] [facility], [place], [address]. tel:[phone] Office/Outpat ient Visit,New, Mod [facility], [address], [place], [place], [id number], [place] tel:[phone] [facility] Spinal stenosis, lumbar region with neurogenic claudication Brandy Ruggiero. [facility] [place], [address], [place], [address], [place]. tel:[phone] Referring Provider: Ashish Lester, [facility] [address] [facility], [place], [address]. tel:[phone] [facility], [address], [place], [id number], [place] tel:[phone] [facility] Spinal stenosis, lumbar region with neurogenic claudication Brandy Ruggiero. [facility] [place], [address], [place], [address], [place]. tel:[phone] Family History Family Member Type Diagnosis Age At Onset No Information Payers Payer name Insurance type Covered democrat ID Authorisabelchantale mayes(s) BCBS [id number] [facility] [id number] Social History Type Description Quantity Date Captured [...]
--- OUTSIDE RECORDS SUMMARY | 2023-08-15 09:52 | XMS_ITS | Clinical Summary ---
Author Name Unknown Organization [facility] Address [place], [place] [address] Care Team Providers Care Physical Therapy Aide Name Role Phone Brian Garcia MD Primary Care Provider Hansel Buchanan MD Unavailable Soraya Wang Unavailable [phone] Allergies No known active allergies Medications Medication [...] Department Care Team Description 08/04/2023 Orders Only [facility] [address] [place] [address] Inocencia Guevara MD 1 scan: (1-Ord) NFLD-EKG-08/02/23 08/02/2023 9:15 AM GIN CLERK Preop Visit [facility] [address] [place] [address] Brian Garcia MD Preoperative Exam (08/15/23 Left Hip Replacement/[facility]/Dr. Gamble ); Follow Up (Medication refills /Diabetes ) 08/02/2023 8:30 AM GIN CLERK Office Visit [facility] [address] [place] [address] Inocencia Guevara MD Follow Up (Coronary artery disease involving lone pine coronary artery of lone pine heart without angina pectoris) 08/02/2023 Telephone [facility] [address] [place] [address] Brian Garcia MD Follow Up 08/01/2023 Travel 07/10/2023 Refill [facility] [address] [place] [address] Brian Garcia MD Refill Request (Metformin) 07/08/2023 Refill [facility] [address] [place] [address] Brain Garcia MD Refill Request (Metformin) 07/07/2023 8:40 AM GIN CLERK Orders Only [facility] [address] [place] [address] Lab, [facility] 07/07/2023 Travel 06/11/2023 Refill [facility] [address] [place] [address] Brian Garcia MD Refill Request (Metformin) 06/09/2023 Refill [facility] [address] [place] [address] Brian Garcia MD Refill Request (Metformin) 06/07/2023 8:00 AM GIN CLERK Telemedicine [facility] [address] [place] [address] Sarita Avendano, [employer] Telehealth (Phone visit, no vitals taken. Follow up sleep ) 06/07/2023 Travel from Last 3 Months Immunizations Name Administration Dates Next Due COVID-19 vaccine (GTI NTLocately 30mcg/0.3mL) FERN DEUTSCH 05/21/2021,10/07/2020,09/16/2020 Influenza, High-dose Inactivated [...] Comments Blood Pressure 125/77 08/02/2023 9:15 AM GIN CLERK Pulse 65 08/02/2023 9:15 AM GIN CLERK Temperature 36.2 ??C (97.1 ??F) 08/02/2023 9:15 AM CS T Respiratory Rate 16 08/02/2023 9:15 AM GIN CLERK Oxygen Saturation 98% 08/02/2023 9:15 AM GIN CLERK Inhaled Oxygen Concentration - - Weight 105.2 kg (232 lb) 08/02/2023 9:15 AM GIN CLERK Height 176.5 cm (5' 9.49) 08/02/2023 9:15 AM CS T Body Mass Index 33.78 08/02/2023 9:15 AM GIN CLERK Plan of Treatment Health Maintenance Due Date [...] 01/05/2022, 09/17/2021 Medical Devices Implanted Type Area Senior Project Architect Device Identifier Shelf Expiration Date Model / Serial / Lot Tissue Pericardium 0.8x8cm Xenosure - [id number] Implanted:Qty: 1 on 10/07/2022 by Roger Finn MD at [facility] Left: Carotid Artery [employer] 05/07/2028 0.8P8 / / [id number] Procedures Procedure Name Priority Date/Time Associated Diagnosis Comments EKG 12 LEAD Routine 08/04/2023 9:05 AM GIN CLERK Coronary artery disease involving lone pine coronary artery of lone pine heart without angina pectoris POTASSIUM Routine 08/02/2023 9:53 AM GIN CLERK Preop examination HEMOGLOBIN Routine 08/02/2023 9:53 AM GIN CLERK Preop examination URINE ALBUMIN TO CREATININE RATIO, RANDOM Routine 07/07/2023 8:53 AM GIN CLERK Type 2 diabetes mellitus treated without insulin (HC) VITAMIN D 25 (DEFICIENCY) Routine 07/07/2023 8:49 AM GIN CLERK Atherosclerosis of lone pine coronary artery of lone pine heart without angina pectoris Vitamin D deficiency PSA TOTAL SCREEN Routine 07/07/2023 8:49 AM GIN CLERK Prostate cancer screening LIPID PANEL W REFLEX MEASURED LDL Routine 07/07/2023 8:49 AM GIN CLERK Pure hypercholesterolemia Coronary artery disease involving lone pine coronary artery of lone pine heart without angina pectoris COMP METABOLIC PANEL Routine 07/07/2023 8:49 AM GIN CLERK Coronary artery disease involving lone pine coronary artery of lone pine heart without angina pectoris CK TOTAL Routine 07/07/2023 8:49 AM GIN CLERK Coronary artery disease involving lone pine coronary artery of lone pine heart without angina pectoris HEMOGLOBIN A1C Routine 07/07/2023 8:49 AM GIN CLERK Type 2 diabetes mellitus treated without insulin (HC) from Last 3 Months Results * EKG 12 LEAD (08/04/2023 9:05 AM GIN CLERK) Inocencia Guevara MD EKG ORD * HEMOGLOBIN (08/02/2023 9:53 AM GIN CLERK) HEMOGLOBIN 15.1 13.5 - 17.5 g/dL 08/02/2023 10:03 AM GIN CLERK [facility] MCV 93 80 - 100 fL 08/02/2023 10:03 AM GIN CLERK [facility] Blood BLOOD SPECIMEN / Unknown Venipuncture / Unknown 08/02/2023 9:53 AM GIN CLERK 08/02/2023 9:54 AM GIN CLERK Brian Garcia MD H[facility]ATOLOGY [facility] [address] [place] [address], * POTASSIUM (08/02/2023 9:53 AM GIN CLERK) POTASSIUM 4.5 3.5 - 5.1 mmol/L 08/02/2023 5:42 PM GIN CLERK [facility] Blood BLOOD SPECIMEN / Unknown Venipuncture / Unknown 08/02/2023 9:53 AM GIN CLERK 08/02/2023 9:54 AM GIN CLERK Brian Garcia MD CHEMISTRY [facility] [address] [place] [address], [place] * (ABNORMAL) URINE ALBUMIN TO CREATININE RATIO, RANDOM (07/07/2023 8:53 AM GIN CLERK) ALB RAND URINE 267.0 mg/L 07/07/2023 4:20 PM GIN CLERK [facility] CREATININE,URIN E 0.91 g/L 07/07/2023 4:20 PM GIN CLERK [facility] ALBUMIN TO CREATININE RATIO,RAND UR 293.4(H) <30.0 mg/g creat 07/07/2023 4:20 PM GIN CLERK [facility] Urine URINE SPECIMEN / Unknown Non-Blood / Unknown 07/07/2023 8:53 AM GIN CLERK 07/07/2023 8:53 AM GIN CLERK Narrative [facility] - 07/07/2023 4:20 PM GIN CLERK If Albumin to Creatinine Ratio is elevated, consider the following: ? Elevations seen with incipient nephropathy associated ?? with diabetes mellitus or hypertension. Stress, exercise,hematuria, ?? and urinary tract infection may also produce elevated results. If clinically indicated, confirm with ?24 Hour Albumin to Creatinine Ratio. ?? Brian Garcia MD URINE [facility] [address] [place] [address], [place] * LIPID PANEL W REFLEX MEASURED LDL (07/07/2023 8:49 AM GIN CLERK) CHOLESTEROL,TOTAL 148 100 - 199 mg/dL 07/07/2023 4:21 PM GIN CLERK [facility] Comment: Cholesterol, Total Reference Ranges Desirable <200 mg/dL Borderline 200-239 mg/dL High >=240 mg/dL TRIGLYCERIDES 146 <150 mg/dL 07/07/2023 4:21 PM GIN CLERK [facility] HDL CHOLESTEROL 57 >40 mg/dL 4:21 PM GIN CLERK [facility] NON-HDL CHOLESTEROL 91 <145 mg/dl 07/07/2023 4:21 PM GIN CLERK [facility] CHOL/HDL RATIO 2.60 <4.50 07/07/2023 4:21 PM GIN CLERK [facility] LDL CHOLESTEROL 62 <=130 mg/dL 07/07/2023 4:21 PM GIN CLERK [facility] VLDL CHOLESTEROL 29 <=30 mg/dL 07/07/2023 4:21 PM GIN CLERK [facility] PROVIDER ORDERED STATUS FASTING 07/07/2023 4:21 PM GIN CLERK [facility] Blood BLOOD SPECIMEN / Unknown Venipuncture / Unknown 07/07/2023 8:49 AM GIN CLERK 07/07/2023 8:50 AM GIN CLERK Soraya PERES [facility] [address] [place] [address] * VITAMIN D 25 (DEFICIENCY) (07/07/2023 8:49 AM GIN CLERK) VITAMIN D TOTAL 35.1 20.0 - 80.0 ng/mL 07/07/2023 4:21 PM GIN CLERK [facility] Blood BLOOD SPECIMEN / Unknown Venipuncture / Unknown 07/07/2023 8:49 AM GIN CLERK 07/07/2023 8:50 AM GIN CLERK Narrative [facility] - 07/07/2023 4:21 PM GIN CLERK ? Vitamin D Status Deficiency: ? <20 ng/mL Insufficiency: ?20-29 ng/mL Sufficiency: ?30-80 ng/mL Possible Toxicity: ??>80 ng/mL Based on [employer] recommendations Biotin supplements may cause clinically significant interference for this test assay. ??If interference is suspected, it is strongly recommended that biotin is discontinued for at least one week prior to retesting. Soraya PERES SEND OUTS Performing Organization Address City/[facility]/ZIP Co de Phone Number [facility] [address] [place] [address], [place] * HEMOGLOBIN A1C MONITORING (POCT) (07/07/2023 8:49 AM GIN CLERK) [facility] HEMOGLOBIN A1C MONITORING (POCT) 6.0 <=6.4 % 07/07/2023 9:05 AM GIN CLERK [facility] Blood BLOOD SPECIMEN / Unknown Venipuncture / Unknown 07/07/2023 8:49 AM GIN CLERK 07/07/2023 8:50 AM GIN CLERK Narrative [facility] - 07/07/2023 9:05 AM GIN CLERK ? (<=6.9%) ? Indicates good control ? [...] Brian Garcia MD CHEMISTRY Performing Organization Address [facility]/ZIP Co de Phone Number [facility] [address] [place] [address], [place] [phone] * CK TOTAL (07/07/2023 8:49 AM GIN CLERK) [facility] CK,TOTAL 81 39 - 308 IU/L 07/07/2023 4:48 PM [facility] Blood BLOOD SPECIMEN / Unknown Venipuncture / Unknown 07/07/2023 8:49 AM GIN CLERK 07/07/2023 8:50 AM GIN CLERK Soraya PERES CHEMISTRY [facility] [address] [place] [address], * (ABNORMAL) COMP METABOLIC PANEL (07/07/2023 8:49 AM GIN CLERK) SODIUM 141 136 - 145 mmol/L 07/07/2023 4:21 PM [facility] POTASSIUM 4.4 3.5 - 5.1 mmol/L 07/07/2023 4:21 PM [facility] CHLORIDE 105 98 - 107 mmol/L 07/07/2023 4:21 PM [facility] CO2,TOTAL 26 22 - 29 mmol/L 07/07/2023 4:21 PM [facility] ANION GAP 10 5 - 18 07/07/2023 4:21 PM [facility] GLUCOSE 123(H) 70 - 99 mg/dL 07/07/2023 4:21 PM [facility] CALCIUM 9.9 8.8 - 10.2 mg/dL 07/07/2023 4:21 PM [facility] BUN 13 8 - 23 mg/dL 07/07/2023 4:21 PM [facility] CREATININE 0.76 0.70 - 1.20 mg/dL 07/07/2023 4:21 PM [facility] BUN/CREAT RATIO 17 10 - 20 4:21 PM [facility] eGFR >90 >90 mL/min/1.7 3m2 07/07/2023 4:21 PM [facility] Comment:As of 2021, eG FR is calculated by the CKD-EPI creatinine equation without race adjustment. ??eGFR can be influenced by muscle mass, exercise, and diet. ??The reported eGFR is an estimation only and is only applicable if the renal function is stable. ALBUMIN 4.6 4.0 - 4.9 g/dL 07/07/2023 4:21 PM GIN CLERK [facility] PROTEIN,TOTAL 7.0 6.0 - 8.0 g/dL 07/07/2023 4:21 PM GIN CLERK [facility] BILIRUBIN,TOTAL 0.5 0.0 - 1.2 mg/dL 07/07/2023 4:21 PM GIN CLERK [facility] ALK PHOSPHATASE 90 40 - 129 IU/L 07/07/2023 4:21 PM GIN CLERK [facility] ALT (SGPT) 32 10 - 50 IU/L 07/07/2023 4:21 PM GIN CLERK [facility] AST (SGOT) 27 10 - 50 IU/L 07/07/2023 4:21 PM GIN CLERK [facility] Blood BLOOD SPECIMEN / Unknown Venipuncture / Unknown 07/07/2023 8:49 AM GIN CLERK 07/07/2023 8:50 AM GIN CLERK Soraya PERES CHEMISTRY [facility] [address] [place] [address], * PSA TOTAL SCREEN - Dx Auto-associated (07/07/2023 8:49 AM GIN CLERK) PSA TOTAL (SCREEN) 0.73 <4.00 ng/mL 07/07/2023 4:21 PM GIN CLERK [facility] Blood BLOOD SPECIMEN / Unknown Venipuncture / Unknown 07/07/2023 8:49 AM GIN CLERK 07/07/2023 8:50 AM GIN CLERK Narrative [facility] - 07/07/2023 4:21 PM GIN CLERK The test method changed on 01/04/2023. If [...] be used interchangeably. Brian Garcia MD LABORATORY [facility] [address] [address], from Last 3 Months Advance Directives Latest [...] 7:34 AM 06/10/2015 11:25 AM Care Teams Physical Therapy Aide Relationship Specialty Start Date End Date Brian Garcia MD [address] [place] [address] PCP - General Family Practice 07/29/15 Hansel Buchanan MD [address] [place] [address] Cardiovascular Disease 05/24/15 Soraya Wang PA [address] [place] [address] Physician Band And Cuff Cutter 11/04/20
--- NOTE | 2023-08-15 10:40 | W.PM.H&PU ---
History & Physical Update History & Physical Update H&P Reviewed and patient assessed: No changes noted
--- NOTE | 2023-08-15 10:41 | CRLHL7_ITS ---
For Patients: As a result of the Cures Act, medical imaging exams and procedure reports are released immediately into your electronic medical record. You may view this report before your referring provider. If you have questions, please contact your health care provider. INDICATION: Postop left ZEFERINO. TECHNIQUE: Pelvis and left hip 2 views. COMPARISON: Pelvis and left hip radiographs 06/24/2023. FINDINGS: Interval postoperative changes of left total hip arthroplasty. Hardware appears intact and well positioned. No acute fracture identified. Postoperative soft tissue gas about the left hip. Mild degenerative changes of the right hip. Vascular calcifications. IMPRESSION: Intact left ZEFERINO with expected immediate postoperative findings. Dictated by Becky Spangler MD @ 08/15/2023 6:19:14 PM (Electronically Signed)
[2023-08-15] MEDS: SODIUM CHLORIDE 0.9 % (FLUSH) 10 ML SYRINGE IVF (11:03)
--- NOTE | 2023-08-15 11:27 | P.NB_ITS ---
Nerve Block Nerve Block Time Seen by Provider: 11:18 Date Seen: 08/15/23 Type of block requested by surgeon for post-operative analgesia: PETRONA/LFCN Side: left Time out performed: Yes Verification of patient name: Yes Verification of date of : Yes Site marking: site marked Name of person performing procedure: MARIAJOSE marshall Continuous monitoring Was continuous monitoring of O2 sat, B/P, compliance monitor, recorded every 15 minutes?: Yes Procedure Checklist: sterile prep, needles and gloves Ultrasound guided. Images saved: Yes Medications given in 5ml increments after negative aspiration: Marcaine %: 0.5 mL: 30 Needle gauge: 20 Decadron (mg): 10 Precedex (mcg): 20 Patient tolerated procedure well: Yes Block Charges Block Charge (with Pro Fee): Femoral Nerve Use of Ultrasound Machine for Block: Yes- US Guidance/pain block
--- NOTE | 2023-08-15 11:35 | SUR.PREOP ---
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
--- NOTE | 2023-08-15 12:00 | CRLHL7_ITS ---
For Patients: As a result of the Cures Act, medical imaging exams and procedure reports are released immediately into your electronic medical record. You may view this report before your referring provider. If you have questions, please contact your health care provider. INDICATION: Total left hip. TECHNIQUE: Single spot image of the left hip submitted. 41.4 seconds fluoro time provided. FINDINGS: Left hip arthroplasty components in place. Dictated by Armaan Zhu MD @ 08/16/2023 1:30:47 PM (Electronically Signed)
[2023-08-15] MEDS: CEFAZOLIN 2 GM in 0.9 % SODIUM CHLORIDE Mini-bag 100 ML IVPB ×2 (12:06→17:54)
[2023-08-15] MEDS: TRANEXAMIC ACID 100 MG/ML INJ 1000 MG IV (12:16)
--- NOTE | 2023-08-15 13:49 | W.ANESCHARGE ---
Anesthesia Charges Start Date/Time Anesthesia Start Date: 08/15/23 Anesthesia Start Time: 11:53 Stop Date/Time Anesthesia Stop Date: 08/15/23 Anesthesia Stop Time: 14:55
--- NOTE | 2023-08-15 14:09 | P.ORPRC_ITS ---
Procedure Note Date of procedure: 08/15/23 Procedure: PREOPERATIVE DIAGNOSIS: 1. Left hip osteoarthritis, severe, primary POSTOPERATIVE DIAGNOSIS: 1. Left hip osteoarthritis, severe, primary PROCEDURE: 1. Left total hip arthroplasty-anterior approach 2. 21889 - intraoperative fluoroscopy up to 1 hour. SURGEON: Shukri Ortiz MD. SMT OPERATOR: Armand Mac PA-C; EMANUEL Cotton - Of note, a skilled warehouse administrative assistant was critical for this case to aid in patient positioning, tissue retraction, limb manipulation/positioning, dislocation/relocation, patient safety, and closure. ANESTHESIA: General endotracheal anesthetic EBL: 350 mL IMPLANTS: DePuy J&J uncemented total hip Broxton cup size 54, hole eliminator, +4 neutral liner Actis stem, standard offset, size 9 +5 mm ceramic 36 mm head. COMPLICATIONS: None evident INDICATIONS: The patient is a pleasant 68-year-old male who has experienced severe left hip pain and difficulty bearing weight. Workup included x-rays which revealed severe osteoarthrosis in the hip. Given the deformity, the dysfunction, and the pain, as well as the failure of nonoperative management, recommendation was made for surgery. FINDINGS: Full-thickness chondral loss diffusely throughout the femoral head and acetabulum. Osteophytes around the perimeter of the femoral head/neck junction and acetabulum. Small effusion upon entering the joint. DESCRIPTION OF PROCEDURE: Following a thorough discussion of risks, benefits, and alternatives consent was obtained and the left hip was marked. The patient was brought to the operating room and placed supine on the operating table. Induction of anesthesia was undertaken. 2 g IV Ancef and 1 g tranexamic acid was administered within 1 hr of incision preoperatively. Proper time-out was performed identifying proper patient, site, procedure. The operative extremity was prepped and draped in the appropriate sterile fashion using ChloraPrep after the patient was positioned on the Elfrida table with head in neutral alignment and all bony prominences well padded. C-arm fluoroscopic imaging was utilized to confirm proper pelvis rotation and position, and to get true AP films of both the contralateral left, and the affected left hip. This is for comparison. A longitudinal incision was made starting approximately 1 cm distal to the ASIS, and 3-4 cm lateral. The incision was extended distally aiming toward the lateral border the patella. Sharp incision through skin and bovie cautery through the subcutaneous tissue allowed identification of the TFL fascia. This was sharply divided, and the fascia bluntly released from the muscle fibers as we dissected medial. Upon coming to the medial border, we were able to retract the TFL laterally, and penetrated the deeper fascia and identify the crossing circumflex vessels. These were ligated/cauterized. The rectus was elevated from the capsule, and retractors placed laterally and medially along the femoral neck to help with visualization of the capsule. We then performed an inverted T capsulotomy. The capsule was tagged for later repair. Retractors were placed inside the capsule. The femoral neck was visualized after releasing medially down to the lesser trochanter, along the sa ddle laterally, and up onto the acetabulum. The femoral neck cut was made in line with our preoperative templating. The head was removed in a single piece, and sized. We turned our attention to acetabular preparation. Initially, the labrum was resected from around the perimeter, the pulvinar was excised, allowing us to visualize the false wall. We started the reaming with a 43 mm reamer. This was medialized down to the true wall. We then enlarged our reamers sequentially up to one size less than the selected cup size. We trialed at the same size and found it to have an excellent fit. The selected cup was then opened, inserted, and impacted in line with the goal of 40-45? of abduction, and 20-25? of anteversion. This was confirmed on C-arm fluoroscopic imaging to be in the appropriate/goal position. Once the cup was placed we placed a hole eliminator and a liner consistent with preop planning. Attention was turned to the femoral preparation. The limb was extended, externally rotated, and adducted. The posteromedial capsule was released, as retractors were placed allowing excellent access to the proximal femur. Initially a box car washer was followed by canal finder followed by various broaches. We broached sequentially up to size noted above, found it to have excellent rotational control, and trialing various heads and necks, revealed that appropriate neck offset, and the above noted head size provided the greatest stability, and congregation of length, and offset. C-arm fluoroscopic imaging confirmed position of the stem, as well as leg lengths, which were compared with the pre procedure all fluoroscopic images. Trial implants were removed, the real femoral stem inserted, as was the ceramic head. After reducing, the leg was placed through range of motion and stability was confirmed anterior, posterior, and lateral. A 3 min Betadine soak was then performed, and thorough irrigation with normal saline followed. Closure of the capsule was performed with #1 PDS. Bleeding was confirmed to be controlled at this stage, and the TFL fascia was closed with #0 strata fix. Subcutaneous, and subcuticular closure was performed with 2-0 Vicryl and 4-0 Monocryl, res pectively. Dressings were applied, and the patient was awoken from anesthesia and transferred the PACU in stable condition. A skilled warehouse administrative assistant was critical for this case to aid in patient positioning, tissue retraction, proximal femur exposure, limb manipulation/positioning, dislocation/relocation, patient safety, and closure. PLAN: 1. Weight bear as tolerated operative extremity. 2. 23 hr perioperative antibiotics. 3. Ice. 4. PT/OT consults for ambulation assistance/mobility education. 5. Social work consult for discharge planning. 6. DVT prophylaxis with at SCDs, Kendall Cuellar, and Xarelto x5 days followed by aspirin for a total of 1 month..
[2023-08-15] MEDS: HYDROmorphone 0.5 mg/0.5 ml inj IVP ×3 (15:15→15:45)
[2023-08-15] MEDS: fentaNYL 100 MCG/2 ML inj 50 MCG IVP ×2 (15:16→15:24)
[2023-08-15] MEDS: LACTATED RINGERS 1000 ML 1,000 ML 35 ML IV (15:27)
--- NOTE | 2023-08-15 18:45 | PC.NURSE ---
Pt arrived to floor from surgery at 1623. Pt had complaints of pain ranging from 4-8; see EMAR for intervention. Pt?s dressing is dry and intact. Pt was drowsy upon arrival. Pt started to wake up more around 1800. Pt tolerating ice chips, water and apple juice. Pt has not attempted to eat yet. Blood glucose was checked at 1700 and the result was 152. Pt alert and oriented. ?
[2023-08-15] MEDS: METFORMIN ER 500 MG 1000 MG PO (18:55)
--- NOTE | 2023-08-15 19:18 | P.IMCN_ITS ---
Date of Consult Patient: Mukul Patient Consult date: 08/15/23 Requesting Physician: Orthopedics Primary Care Provider: Brian Garcia MD Consult Narrative Narrative: Yoel Wolf is a 68 year old male admitted to the hospital for left total hip arthroplasty performed by Dr. Ortiz. Procedure was uncomplicated. He has requested consultation for management of medical problems postoperatively. Patient reports no concerns the time I see him. He is still somewhat sedated from surgery. He is somewhat hypoxic requiring about a 0.5 L of oxygen to maintain his O2 sats above 90%. This likely due to his postoperative sedation as well as known obstructive sleep apnea. He has no other concerns at this time. Pain is adequately controlled. Preoperatively there were no concerns. He was seen by his paste up worker as well as his primary care doctor on August 02 for preop evaluation. No concerns were identified for his perioperative care. Traffic And Transport Planner recommended continuing aspirin. Review of Systems Narrative: No recent illness or injury. Review of systems otherwise unremarkable. [facility] Medical History (Updated 08/15/23 @ 19:27 by Saqib Meehan MD) Diabetes ?E11.9 - Type 2 diabetes mellitus without complications (ICD-10) Obesity (BMI 30-39.9) ?E66.9 - Obesity, unspecified (ICD-10) Right inguinal hernia ?K40.90 - Unilateral inguinal hernia, without obstruction or gangrene, not specified as recurrent (ICD-10) Carotid artery stenosis ?I65.29 - Occlusion and stenosis of unspecified carotid artery (ICD-10) JO (obstructive sleep apnea) ?G47.33 - Obstructive sleep apnea (adult) (pediatric) (ICD-10) CAD (coronary artery disease) ?I25.10 - Atherosclerotic heart disease of [place] coronary artery without angina pectoris (ICD-10) Stroke ?I63.9 - Cerebral infarction, unspecified (ICD-10) Hypertension ?I10 - Essential (primary) hypertension (ICD-10) Surgical History History of uvulopalatopharyngoplasty ?Z98.890 - Other specified postprocedural states (ICD-10) Hx of right coronary artery stent placement ?Z95.5 - Presence of coronary angioplasty implant and graft (ICD-10) History of carotid endarterectomy ?Z98.890 - Other specified postprocedural states (ICD-10) History of carpal tunnel surgery of right wrist (09/01/22) ?Z98.890 - Other specified postprocedural states (ICD-10) History of carpal tunnel surgery of left wrist (07/14/22) ?Z98.890 - Other specified postprocedural states (ICD-10) H/O heart artery stent (~2016) ?Z95.5 - Presence of coronary angioplasty implant and graft (ICD-10) Family History Other Coronary artery disease Social History (Updated 08/15/23 @ 19:23 by Saqib Meehan MD) Narrative: -Eva . , Eva is healthcare power of commercial attorney. Code status is full. He is a former smoker but has not smoked for 8 years. He drinks alcohol approximately once a week. He lives in a home that has 2 steps to get in and then is a split-level requiring going up 7 steps to get to a level where he can live. What is your current living situation?: I presently have a place to live Problems where you live: no known problems In the past 12 months, utilities in danger of being shut off: no In past 12 months, lack of transportation kept you from medical appts, meetings, work, or getting things needed for daily living: no In the past 12 mos, have been you worried that your food would run out before you had money to buy more?: never true In the past 12 mos, the food you bought just didn't last and you didn't have money to buy more?: never true Highest level of school completed/degree received: decline to answer Smoking Status: Former smoker What tobacco products do you use: cigarettes Smoking quit date/years: <= 15 years ago Do you use any of these nicotine containing products: None Second hand tobacco smoke exposure: No How often do you have a drink containing alcohol: monthly or less Alcohol type: beer How many standard drinks containing alcohol do you have on a typical day: 1 or 2 How often do you have six or more drinks on one occasion: Never AUDIT-C Alcohol total score: 1 Non-prescribed substance use: denies use Caffeine: Yes (coffee) How often does anyone, including family, friends and others, physically hurt you : never How often does anyone, including family, friends and others, insult or talk down to you: never How often does anyone, including family, friends and others, threaten you with harm: never How often does anyone, including family, friends and others, scream or curse at you: never service: Yes Meds Home Medications and Allergies Home Medications Medication Instructions Recorded Confirmed Type aspirin 81 mg tablet,delayed 81 mg PO QDAY 06/22/22 08/15/23 History release blood sugar diagnostic (Accu-Chek #10 ea 10/26/22 06/24/23 History Guide test strips) blood-glucose meter (Accu-Chek #1 ea 10/26/22 06/24/23 History Guide Me Glucose Meter) lancets (Accu-Chek Softclix #100 ea 10/26/22 06/24/23 History Lancets) metformin 500 mg tablet,extended 1,000 mg PO QDAY 10/26/22 08/15/23 History release 24 hr metoprolol succinate 50 mg 50 mg PO DAILY 10/26/22 08/15/23 History tablet,extended release 24 hr nitroglycerin 0.4 mg sublingual 0.4 mg sublingual 10/26/22 06/24/23 History tablet rosuvastatin 40 mg tablet 40 mg PO DAILY 10/26/22 08/15/23 History empagliflozin 10 mg tablet 10 mg PO DAILY 08/11/23 08/11/23 History (Jardiance) Allergies Allergy/AdvReac Type Severity Reaction Status Date / Time No Known Drug Allergies Allergy Verified 08/15/23 10:47 Exam Narrative: Exam Narrative: He is sleepy but arouses to voice. He is oriented to his circumstances and gives his own history. Eyes normal. Oropharynx small airway. Neck is supple without mass or adenopathy. Respirations are clear to auscultation. Good air exchange all lung gayle. Cardiovascular: S1, S2, regular rate and rhythm. No murmur gallop or rub. Abdomen: Bowel sounds active. Abdomen is soft without tenderness or mass. Distally he has intact pulses and sensation. No significant edema. Const: Vital Signs, click to edit/add: Vital Signs - 24 hr 08/15/23 11:00 08/15/23 11:26 08/15/23 11:32 Temperature 97.8 F Pulse Rate 61 53 L 53 L Pulse Rate [Left P ulse Oximeter] Respiratory Rate 16 16 16 Blood Pressure 131/74 117/67 114/68 Blood Pressure [Ri ght Arm] Pulse Oximetry 96 97 96 Oxygen Delivery Me thod Room Air Nasal Cannula Nasal Cannula Oxygen Flow Rate 3 3 08/15/23 14:50 08/15/23 14:55 08/15/23 15:00 Temperature 96.2 F L Pulse Rate 72 61 67 Pulse Rate [Left P ulse Oximeter] Respiratory Rate 12 14 12 Blood Pressure 196/94 H 181/114 H 187/102 H Blood Pressure [Ri ght Arm] Pulse Oximetry 97 98 98 Oxygen Delivery Me thod Nasal Cannula Oxygen Flow Rate 2 08/15/23 15:05 08/15/23 15:10 08/15/23 15:15 Temperature Pulse Rate 67 65 66 Pulse Rate [Left P ulse Oximeter] Respiratory Rate 12 14 16 Blood Pressure 197/106 H 188/108 H 158/115 H Blood Pressure [Ri ght Arm] Pulse Oximetry 99 98 100 Oxygen Delivery Me thod Oxygen Flow Rate 08/15/23 15:20 08/15/23 15:25 08/15/23 15:30 Temperature Pulse Rate 67 66 64 Pulse Rate [Left P ulse Oximeter] Respiratory Rate 14 16 16 Blood Pressure 161/100 H 183/92 H 184/137 H Blood Pressure [Ri ght Arm] Pulse Oximetry 94 99 100 Oxygen Delivery Me thod Oxygen Flow Rate 08/15/23 15:35 08/15/23 15:40 08/15/23 15:45 Temperature Pulse Rate 68 66 64 Pulse Rate [Left P ulse Oximeter] Respiratory Rate 15 16 16 Blood Pressure 176/139 H 176/102 H 160/94 H Blood Pressure [Ri ght Arm] Pulse Oximetry 99 100 97 Oxygen Delivery Me thod Oxygen Flow Rate 08/15/23 15:50 08/15/23 15:55 08/15/23 16:00 Temperature 97.0 F L Pulse Rate 66 63 70 Pulse Rate [Left P ulse Oximeter] Respiratory Rate 14 12 12 Blood Pressure 187/105 H 183/82 H 171/88 H Blood Pressure [Ri ght Arm] Pulse Oximetry 98 97 98 Oxygen Delivery Me thod Oxygen Flow Rate 08/15/23 16:05 08/15/23 16:10 08/15/23 16:15 Temperature 96.7 F L Pulse Rate 61 64 65 Pulse Rate [Left P ulse Oximeter] Respiratory Rate 14 16 16 Blood Pressure 141/83 H 155/81 H 151/89 H Blood Pressure [Ri ght Arm] Pulse Oximetry 93 96 98 Oxygen Delivery Me thod Oxygen Flow Rate 08/15/23 16:23 08/15/23 16:30 08/15/23 16:45 Temperature 96.2 F L 96.7 F L 96.7 F L Pulse Rate 66 Pulse Rate [Left P ulse Oximeter] 70 70 Respiratory Rate 14 16 16 Blood Pressure Blood Pressure [Ri ght Arm] 160/96 H 143/93 H 156/95 H Pulse Oximetry 95 96 Oxygen Delivery Me thod Nasal Cannula Nasal Cannula Nasal Cannula Oxygen Flow Rate 2 1 1 08/15/23 17:00 08/15/23 17:15 08/15/23 17:45 Temperature 96.6 F L 96.7 F L 96.9 F L Pulse Rate Pulse Rate [Left P ulse Oximeter] 73 78 78 Respiratory Rate 16 16 16 Blood Pressure Blood Pressure [Ri ght Arm] 140/87 H 154/101 H 156/76 H Pulse Oximetry 96 96 96 Oxygen Delivery Me thod Nasal Cannula Nasal Cannula Room Air Oxygen Flow Rate 1 0.5 0 08/15/23 18:00 Temperature 97.3 F L Pulse Rate Pulse Rate [Left P ulse Oximeter] 75 Respiratory Rate 16 Blood Pressure Blood Pressure [Ri ght Arm] 141/88 H Pulse Oximetry 95 Oxygen Delivery Me thod Room Air Oxygen Flow Rate 0 Documenting provider has reviewed patient's vital signs: yes Assessment and Plan Assessment and plan (1) Postoperative hypoxia: Problem comment: likely due to combination of sedation and obstructive sleep apnea. Continue to use home CPAP. Monitor with opioid treatment. Status: Acute (2) JO (obstructive sleep apnea): Status: Acute (3) Obesity (BMI 30-39.9): Problem comment: BMI 34.1 (previous 35.1) Status: Acute (4) Diabetes: Problem comment: Historically well controlled. Resume home medication Status: Acute (5) CAD (coronary artery disease): Problem comment: consider restarting aspirin postop Status: Acute Plan 68-year-old male status post left hip arthroplasty. Generally doing well. Monitor for hypoxia. Continue to manage chronic medical problems including diabetes, coronary artery disease. Resume aspirin as soon as possible for secondary stroke and coronary artery disease prevention. Total time spent is 40 minutes, 25 minutes in coordination of care discussing with patient and ongoing management of medical problems in the context of hip ar
[2023-08-15] MEDS: OXYCODONE 5 MG TABLET PO (20:59)
[2023-08-15] MEDS: SENNOSIDES 1 TAB TABLET 2 TAB PO (21:00)
[2023-08-16 02:15] VITALS: BP 122/81; PULSE 79; RESP 14; TEMP 36.9; O2SAT 92
[2023-08-16] MEDS: CEFAZOLIN 2 GM in 0.9 % SODIUM CHLORIDE Mini-bag 100 ML IVPB (02:20)
[2023-08-16] MEDS: OXYCODONE 5 MG TABLET PO ×3 (02:20→08:38)
[2023-08-16] MEDS: ACETAMINOPHEN 500 MG TABLET 1000 MG PO (05:50)
[2023-08-16 06:59] LABS: Hematocrit 42.7 % (37.0-53.0); Hemoglobin* 14.3 gm/dL (13.5-17.5); Immature Granulocytes Pct Auto 0.2 %; Lymphocytes Percent Auto 8.2 % (20-44); Mean Corpuscular HGB Conc 34 gm/dL (32-36); Mean Corpuscular Hemoglobin 31 pg (26-34); Mean Corpuscular Volume 91 fL (80-100); Monocytes Percent Auto 7.2 % (0.0-11.0); Neutrophils Percent Auto 84.4 % (42.0-72.0); Platelet Count* 229 K/uL (140-440); RDW Coefficient of Variation % 12.8 % (11.5-15.5); Red Blood Count 4.67 m/uL (4.30-5.90); White Blood Count* 11.88 K/uL (4.50-11.00)
[2023-08-16 07:07] LABS: Chloride* 103 mmol/L (96-114); Sodium* 137 mmol/L (135-149)
[2023-08-16 07:08] LABS: Potassium* 4.1 mmol/L (3.6-5.1)
[2023-08-16 07:10] LABS: Anion Gap 12 mEq/L (7-15); Carbon Dioxide* 22 mmol/L (20-32); Creatinine* 0.6 mg/dL (0.5-1.5); Est. Creatinine Clearance* 69.72; Estimated Glomerular Filt Rate 104 ml/min; Slide Review Reflex No
[2023-08-16 07:11] LABS: Calcium* 9.6 mg/dL (8.4-10.6); Glucose* 144 mg/dL (60-115)
[2023-08-16 07:21] VITALS: BP 128/86; PULSE 76; RESP 14; TEMP 37.2; O2SAT 94
[2023-08-16 07:27] LABS: Blood Urea Nitrogen* 12 mg/dL (7-30)
--- NOTE | 2023-08-16 08:06 | PC.NURSE ---
Pt alert and oriented x3. Afebrile. Pt reports 8/10 pain in left hip, managed with cold pack, scheduled and PRN medications. Pt had difficulties voiding after surgery going 100ml in hat, and felt pressure, RN talked to pt about strait catheterization, pt agreed and pt had 1500ml output with pressure relief. Pt is up SBA with walker and gait belt to bathroom and voiding. Pt's left hip dressing is CDI. Pt slept intermittently throughout night. CPAP was on throughout night.
[2023-08-16] MEDS: METOPROLOL SUCCINATE (XL) 50 MG TAB PO (08:37)
[2023-08-16] MEDS: SENNOSIDES 1 TAB TABLET 2 TAB PO (08:37)
[2023-08-16] MEDS: METFORMIN ER 500 MG 1000 MG PO (08:37)
[2023-08-16] MEDS: RIVAROXABAN 10 MG TABLET PO (08:38)
[2023-08-16] MEDS: ROSUVASTATIN CALCIUM 10 MG TABLET 40 MG PO (08:43)
[2023-08-16] MEDS: ASPIRIN 81 MG TAB.CHEW PO (09:57)
--- NOTE | 2023-08-16 10:58 | PC.NURSE ---
Discharge: Patient pleasant and cooperative. Patient vitally stable, lungs clear, BS WNL, IV removed, catheter intact. Patient rates pain 6/10, 10 mg of oxy given once. Patient SBA/walker. Patient tolerating regular diet and urinating. Patient left hip dressing C/D/I. Patient signed belongings sheet and discharge form. Patient nor had further questions regarding discharge. Patient left the floor by wheelchair to home with belongings at 1028.
--- NOTE | 2023-08-16 12:56 | P.ORPN_ITS ---
Subjective Subjective Date Seen: 08/16/23 Principal diagnosis: Status postop day 1, left total hip arthroplasty - anterior approach Interval history: Patient reports doing well. No acute events over night. Pain managed with scheduled and PRN medications, ice. DVT prophylaxis: 10 mg rivaroxaban daily, including 81 mg aspirin once daily, bilateral knee high Kendall stockings, SCDs, walking. The aspirin was suggested by his honing machine set up operator. Denies fevers, chills, aches, N/V, CP, SOB/CHINO, or lightheadedness. Ortho Exam Narrative Exam Narrative: -Patient appears comfortable in recliner; no apparent acute distress -Alert and oriented times 3 -Operative hip swollen; soft tissues supple; no obvious erythema. Ecchymosis minimal. Warmth appropriate -Surgical dressing clean, dry, intact; no obvious drainage, no erythematous streaking peripheral to the bandage -Bilateral calves soft and supple; no significant swelling, edema, tenderness, erythema, discoloration, warmth, or palpable cords -2+ DP/PT pulses, intact dermatomes and myotomes distally (5/5 strength). Mild numbness about the lateral femoral cutaneous nerve distribution. Const Vital Signs, click to edit/add: Vital Signs - 24 hr 08/15/23 14:50 08/15/23 14:55 08/15/23 15:00 Temperature 96.2 F L Pulse Rate 72 61 67 Pulse Rate [Left Pulse Oximeter] Respiratory Rate 12 14 12 Blood Pressure 196/94 H 181/114 H 187/102 H Blood Pressure [Left Arm] Blood Pressure [Right Arm] Pulse Oximetry 97 98 98 Oxygen Delivery Method Nasal Cannula Oxygen Flow Rate 2 08/15/23 15:05 08/15/23 15:10 08/15/23 15:15 Temperature Pulse Rate 67 65 66 Pulse Rate [Left Pulse Oximeter] Respiratory Rate 12 14 16 Blood Pressure 197/106 H 188/108 H 158/115 H Blood Pressure [Left Arm] Blood Pressure [Right Arm] Pulse Oximetry 99 98 100 Oxygen Delivery Method Oxygen Flow Rate 08/15/23 15:20 08/15/23 15:25 08/15/23 15:30 Temperature Pulse Rate 67 66 64 Pulse Rate [Left Pulse Oximeter] Respiratory Rate 14 16 16 Blood Pressure 161/100 H 183/92 H 184/137 H Blood Pressure [Left Arm] Blood Pressure [Right Arm] Pulse Oximetry 94 99 100 Oxygen Delivery Method Oxygen Flow Rate 08/15/23 15:35 08/15/23 15:40 08/15/23 15:45 Temperature Pulse Rate 68 66 64 Pulse Rate [Left Pulse Oximeter] Respiratory Rate 15 16 16 Blood Pressure 176/139 H 176/102 H 160/94 H Blood Pressure [Left Arm] Blood Pressure [Right Arm] Pulse Oximetry 99 100 97 Oxygen Delivery Method Oxygen Flow Rate 08/15/23 15:50 08/15/23 15:55 08/15/23 16:00 Temperature 97.0 F L Pulse Rate 66 63 70 Pulse Rate [Left Pulse Oximeter] Respiratory Rate 14 12 12 Blood Pressure 187/105 H 183/82 H 171/88 H Blood Pressure [Left Arm] Blood Pressure [Right Arm] Pulse Oximetry 98 97 98 Oxygen Delivery Method Oxygen Flow Rate 08/15/23 16:05 08/15/23 16:10 08/15/23 16:15 Temperature 96.7 F L Pulse Rate 61 64 65 Pulse Rate [Left Pulse Oximeter] Respiratory Rate 14 16 16 Blood Pressure 141/83 H 155/81 H 151/89 H Blood Pressure [Left Arm] Blood Pressure [Right Arm] Pulse Oximetry 93 96 98 Oxygen Delivery Method Oxygen Flow Rate 08/15/23 16:23 08/15/23 16:30 08/15/23 16:45 Temperature 96.2 F L 96.7 F L 96.7 F L Pulse Rate 66 Pulse Rate [Left Pulse Oximeter] 70 70 Respiratory Rate 14 16 16 Blood Pressure Blood Pressure [Left Arm] Blood Pressure [Right Arm] 160/96 H 143/93 H 156/95 H Pulse Oximetry 95 96 Oxygen Delivery Method Nasal Cannula Nasal Cannula Nasal Cannula Oxygen Flow Rate 2 1 1 08/15/23 17:00 08/15/23 17:15 08/15/23 17:45 Temperature 96.6 F L 96.7 F L 96.9 F L Pulse Rate Pulse Rate [Left Pulse Oximeter] 73 78 78 Respiratory Rate 16 16 16 Blood Pressure Blood Pressure [Left Arm] Blood Pressure [Right Arm] 140/87 H 154/101 H 156/76 H Pulse Oximetry 96 96 96 Oxygen Delivery Method Nasal Cannula Nasal Cannula Room Air Oxygen Flow Rate 1 0.5 0 08/15/23 18:00 08/15/23 20:00 08/15/23 21:00 Temperature 97.3 F L 98.3 F 98.2 F Pulse Rate Pulse Rate [Left Pulse Oximeter] 75 94 84 Respiratory Rate 16 16 16 Blood Pressure Blood Pressure [Left Arm] Blood Pressure [Right Arm] 141/88 H 146/91 H 138/90 H Pulse Oximetry 95 95 96 Oxygen Delivery Method Room Air Room Air Room Air Oxygen Flow Rate 0 0 08/15/23 22:00 08/15/23 23:00 08/16/23 02:15 Temperature 98.1 F 98.2 F 98.4 F Pulse Rate Pulse Rate [Left Pulse Oximeter] 88 89 79 Respiratory Rate 16 16 14 Blood Pressure Blood Pressure [Left Arm] Blood Pressure [Right Arm] 137/94 H 127/77 122/81 Pulse Oximetry 94 96 92 Oxygen Delivery Method Room Air Room Air Room Air Oxygen Flow Rate 0 0 08/16/23 07:21 08/16/23 07:21 Temperature 98.9 F Pulse Rate Pulse Rate [Left Pulse Oximeter] 76 76 Respiratory Rate 14 14 Blood Pressure Blood Pressure [Left Arm] 128/86 Blood Pressure [Right Arm] Pulse Oximetry 94 Oxygen Delivery Method Room Air Oxygen Flow Rate Assessment and Plan Assessment and plan (1) Status post total hip replacement, left: Problem details: POD 1 left total hip arthroplasty - anterior approach Status: Acute (2) Postoperative hypoxia: Problem details: likely due to combination of sedation and obstructive sleep apnea. Continue to use home CPAP. Monitor with opioid treatment. Status: Acute (3) JO (obstructive sleep apnea): Status: Acute (4) Obesity (BMI 30-39.9): Problem details: BMI 34.1 (previous 35.1) Status: Acute (5) Diabetes: Problem details: Historically well controlled. Resume home medication Status: Acute (6) CAD (coronary artery disease): Problem details: consider restarting aspirin postop Status: Acute Plan - Complete 23 hour perioperative antibiotics. - PT/OT consult for education and assistance. - Social work consult for discharge planning - Prescribed analgesics as needed - DVT prophylaxis: 10 mg once daily Xarelto and 81 mg once daily aspirin for total 5 days, followed by 81 mg aspirin by mouth twice daily, bilateral knee high Kendall Hose stockings and SCDs - Anticipation is for discharge to home with 08/16/2023 if the patient remains medically stable, pain is controlled, and they are safe with mobilization.
== END 2023-08-16 10:28 | disposition home or self-care (01) ==
LOC: OR 09:50 → MEDSURG 09:50
PROVIDERS: Family Medicine; PCP Family Medicine; Visit Provider Orthopaedic Surgery Sports Medicine
PROC: (CPT 27130; principal; 2023-08-15 12:00)
DX: M16.12 Unilateral primary osteoarthritis, left hip (principal); G89.18 Other acute postprocedural pain; R09.02 Hypoxemia; G47.33 Obstructive sleep apnea (adult) (pediatric); E11.9 Type 2 diabetes mellitus without complications; E66.9 Obesity, unspecified; I10 Essential (primary) hypertension; Z68.34 Body mass index [BMI] 34.0-34.9, adult; I25.10 Atherosclerotic heart disease of native coronary artery without angina pectoris
CPT/HCPCS: 27130; 01214; 36415; 51702; 64447; 73501; 76000; 76942; 80048; 82962; 85025; 97110; 97116; 97161; 97165; 97530; 97535; A9270; C1776; J0330; J0665; J0690; J1100; J1170; J2250; J2704; J3010; J3475; J7120

== ENCOUNTER 2023-09-20 08:00 | Outpatient (RCR) | payer MEDICARE, BC, SELFPAY ==
--- NOTE | 2023-08-02 11:53 | PT.OPEX ---
PT [facility] Out[facility] Eval PT [facility] Outpatient Eval Start: 08/02/23 07:43 Freq: Status: Active Protocol: Document 08/02/23 11:43 ZULY (Rec: 08/02/23 11:49 ZULY [id number]) E-signed By Grace Martinez, PT Physical Therapy Outpatient Evaluation Insurance Information Recert Due Date 10/27/23 Insurance Name Medicare B,[employer] Medical Diagnosis Pre and post operative left ZEFERINO DOS: 08/15/23 Treating Diagnosis Left hip pain, antalgic gait, limited hip ROM, gross LE weakness Referring MD Ortiz Subjective Subjective Yoel reports to PT to prepare for upcoming L ZEFERINO by Dr. Ortiz on 08/15/23. He was supposed to have this surgery last year however delayed d/t having a stroke following carotid endarterectomy on 10/07. No physical limitation with this however does have some receptive and expressive aphasia however does demonstrate more expressive aphasia today with describing home set-up. Able to fully describe home set-up with a few attempts. Not using AD. He is able to drive. Lives in a [place] home with 2 short steps to enter the house from the garage and no railing. 6 steps to go up to bed and bath with railing on both sides. does help him occasionally with speech deficits however not present at appointment today. PMH: HTN, DM, obesity, heart stent Pain Comments -02/17 Date of Last Physician Visit 06/24/23 Current Work Status Retired Precautions Therapy Limitations/Systems Review Not Limited Objective Other/Pertinent Objective Antalgic gait: limited terminal hip extension and stance time L LE, reverse trendelenburg B Hip ROM: R/L -flex 90/90 with end range pain -ext 10/ neutral -ER 35/25 -IR 10/neutral Quad set: good SLR x10 mild extension lag Assessment Assessment/Impression Yoel is a 68 year old male presenting to PT for preparation of upcoming L ZEFERINO DOS 08/15/23 d/t end stage OA. Session focused on education of anterior hip precautions, post-operative fall prevention precautions, transfers, gait with AD, stair negotiation, post-operative exercises. He is able to verbalize precautions and demonstrated independence with exercises, gait and stairs. He is appropriate to proceed with surgery at this time. Primary Functional Limitations Walking, standing, stair negotiation, squatting Plan of Care Rehabilitation Potential Good Physical Therapy Goals By end of session today, patient will... Demonstrate appropriate gait pattern with FWW to utilize post surgery for optimal safety when ambulating Demonstrate ability to negotiate stairs using appropriate stair pattern post surgery for optimal safety when at home and in community Verbalize understanding of most appropriate home set up including needed equipment for optimal safety and recovery post surgery Be independent in HEP program to show ability to perform appropriate exercises post surgery Treatment Plan/Direct Interventions Gait Training,Ice/Cold/ Vasopneumatic,Joint Mobilization,Manual Therapy, Neuromuscular Re-ed,Self-Care/ Home Management,Therapeutic Activities,Therapeutic Exercises Frequency/Duration 1x/wk for 4-6 weeks Patient Will Be Discharged From Therapy Completion of LTG(s), Independent w/HEP, Independently Progressing Evaluation Billing Untimed Code Treatment Minutes 22 Complexity Low Certification Information Initial Certification Date 08/02/23 Ending Certification Date 10/27/23 Provider Signature Shows Agreement With POC & Medical Necessity Physician Signature & Date Requested Please Sign/Date Here Physician Comment/Change : Physician NPI Number #
== END 2023-10-22 23:59 | disposition home or self-care (01) ==
PROVIDERS: PCP Family Medicine; Visit Provider Orthopaedic Surgery Sports Medicine
DX: M16.12 Unilateral primary osteoarthritis, left hip (principal); Z96.642 Presence of left artificial hip joint; Z51.89 Encounter for other specified aftercare
CPT/HCPCS: 97110; 97116; 97140; 97161; 97164; 97535

== ENCOUNTER 2023-10-19 10:38 | Emergency (ER) | payer MEDICARE, BC, SELFPAY ==
[2023-10-19] VITALS (24 sets, daily range): BP systolic 146–211; BP diastolic 81–106; PULSE 61–80; RESP 16; TEMP 36.9; O2SAT 90–98; BMI 32.9
--- NOTE | 2023-10-19 | CT_ITS ---
Patient: JJ LY Facility:?[facility] Patient ID:?[id number] Site Patient ID:?[id number]. Site :?[id number] Study:?CT-Head stroke protocol-10/19/2023 10:46:40 AM Ordering Physician:Estella Corrales Final Report: Indication: Stroke Technique: Volumetric multidetector CT images of the head were obtained without the administration of low osmolar intravenous contrast. Comparison: None available Findings: There is no intra-axial or extra-axial fluid collection. There is no mass effect or midline shift. There is age-related cortical atrophy with mild sulcal widening and ex vacuo dilatation of the lateral ventricles. There is encephalomalacia of the left parietal lobe with likely minimal laminar cortical necrosis. There is mild to moderate chronic small vessel disease change within the subcortical and periventricular white matter. Otherwise, the brain parenchyma is preserved in attenuation and melara-white differentiation. The orbits and their contents are grossly within normal limits. The bony calvarium is grossly intact. The paranasal sinuses are clear. The mastoid air cells are well aerated. Impression: Encephalomalacia of the left parietal lobe with minimal laminar cortical necrosis commensurate with chronic infarct changes. No new acute intracranial abnormality is identified. A report was sent to Dr. Bell at 11:03 a.m. 10/19/20[address] note that all CT scans at this facility use dose modulation, iterative reconstruction, and/or weight-based dosing when appropriate to reduce radiation dose to as low as reasonably achievable. Dictated by Jack Garcia MD @ 10/19/2023 11:04:31 AM Signed by:?Jack Garcia MD @10/19/2023 11:04:31 AM (Electronic Signature)
--- NOTE | 2023-10-19 11:00 | ED.NURSE ---
Glucose 80
--- NOTE | 2023-10-19 11:01 | ED_ITS ---
<Statement entered by Vitor Corrales MD - 10/19/23 14:11> This would be critical care for an hour and a half HPI - General Adult General Chief complaint: Neuro Symptoms/Altered Deficit Stated complaint: possible stroke Time Seen by Provider: 10/19/23 10:51 History of Present Illness HPI narrative: 68-year-old old male about 8 weeks status post hip surgery presents with an episode of confusion what appeared to be some left hand weakness, not following commands. 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 I believe that was on the right. He had some residual speech issues but no real motor problems. He is now off blood thinners. He has had no chest pain. He presents to the emergency department with a stroke code. Per his there is no recent illness. Related Data Home Medications Medication Instructions Recorded Confirmed aspirin 81 mg tablet,delayed 81 mg PO BID 06/22/22 10/19/23 release blood sugar diagnostic (Accu-Chek #10 ea 10/26/22 09/27/23 Guide test strips) blood-glucose meter (Accu-Chek #1 ea 10/26/22 09/27/23 Guide Me Glucose Meter) lancets (Accu-Chek Softclix #100 ea 10/26/22 09/27/23 Lancets) metformin 500 mg tablet,extended 1,000 mg PO QDAY 10/26/22 10/19/23 release 24 hr metoprolol succinate 50 mg 50 mg PO DAILY 10/26/22 10/19/23 tablet,extended release 24 hr nitroglycerin 0.4 mg sublingual 0.4 mg sublingual PRN 10/26/22 10/19/23 tablet rosuvastatin 40 mg tablet 40 mg PO DAILY 10/26/22 10/19/23 Previous Rx's Medication Instructions Recorded acetaminophen 500 mg capsule 500 - 1,000 mg (1 - 2 x 500 mg) PO 08/16/23 Q6H PRN #100 caps Allergies Allergy/AdvReac Type Severity Reaction Status Date / Time No Known Drug Allergies Allergy Verified 10/19/23 10:44 Review of Systems Status of ROS: Reports: 6 or more systems reviewed and unremarkable except as noted in History and below Narrative: This is per his [facility] Medical History Diabetes ?E11.9 - Type 2 diabetes mellitus without complications (ICD-10) Obesity (BMI 30-39.9) ?E66.9 - Obesity, unspecified (ICD-10) Right inguinal hernia ?K40.90 - Unilateral inguinal hernia, without obstruction or gangrene, not specified as recurrent (ICD-10) Carotid artery stenosis ?I65.29 - Occlusion and stenosis of unspecified carotid artery (ICD-10) JO (obstructive sleep apnea) ?G47.33 - Obstructive sleep apnea (adult) (pediatric) (ICD-10) CAD (coronary artery disease) ?I25.10 - Atherosclerotic heart disease of [place] coronary artery without angina pectoris (ICD-10) Stroke ?I63.9 - Cerebral infarction, unspecified (ICD-10) Hypertension ?I10 - Essential (primary) hypertension (ICD-10) Surgical History History of total left hip replacement (08/15/23) ?Z96.642 - Presence of left artificial hip joint (ICD-10) History of uvulopalatopharyngoplasty ?Z98.890 - Other specified postprocedural states (ICD-10) Hx of right coronary artery stent placement ?Z95.5 - Presence of coronary angioplasty implant and graft (ICD-10) History of carotid endarterectomy ?Z98.890 - Other specified postprocedural states (ICD-10) History of carpal tunnel surgery of right wrist (09/01/22) ?Z98.890 - Other specified postprocedural states (ICD-10) History of carpal tunnel surgery of left wrist (07/14/22) ?Z98.890 - Other specified postprocedural states (ICD-10) H/O heart artery stent (~2015) ?Z95.5 - Presence of coronary angioplasty implant and graft (ICD-10) Family History Other Coronary artery disease Social History Narrative: -Eva . 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 Code status is full. He is a former smoker but has not smoked for 8 years. He drinks alcohol approximately once a week. He lives in a home that has 2 steps to get in and then is a split-level requiring going up 7 steps to get to a level where he can live. What is your current living situation?: I presently have a place to live Problems where you live: no known problems In the past 12 months, utilities in danger of being shut off: no In past 12 months, lack of transportation kept you from medical appts, meetings, work, or getting things needed for daily living: no In the past 12 mos, have been you worried that your food would run out before you had money to buy more?: never true In the past 12 mos, the food you bought just didn't last and you didn't have money to buy more?: never true Highest level of school completed/degree received: decline to answer Smoking Status: Former smoker What tobacco products do you use: cigarettes Smoking quit date/years: <= 15 years ago Do you use any of these nicotine containing products: None Second hand tobacco smoke exposure: No How often do you have a drink containing alcohol: 2-3 times a week Alcohol type: beer How many standard drinks containing alcohol do you have on a typical day: 1 or 2 How often do you have six or more drinks on one occasion: Never AUDIT-C Alcohol total score: 3 Non-prescribed substance use: denies use Caffeine: Yes (coffee) How often does anyone, including family, friends and others, physically hurt you : never How often does anyone, including family, friends and others, insult or talk down to you: never How often does anyone, including family, friends and others, threaten you with harm: never How often does anyone, including family, friends and others, scream or curse at you: never service: Yes Exam Narrative: Exam Narrative: Objective: Patient's systolic blood pressure is little elevated otherwise his labs are within normal limits He is awake, but he really does not follow command and LEs I showed him how to smile healed will smile. With commanding verbally he does not smile. There is no obvious facial asymmetry. The patient does have a ?stunned? appearance he has no ability to follow commands in terms of squeezing my hands bite on either arm. He does have normal leg strength and he is able to lift his legs off the ground. There does appear to be any drift with them. Neck is supple Chest is clear Heart rate and rhythm regular 2/6 systolic murmur occasional ectopic beat noted Abdomen benign soft Extremities as above, with basic inability to follow commands in the arms he is moving his arms however. Const: Vital Signs, click to edit/add: Vital Signs - 24 hr 10/19/23 10:47 10/19/23 10:55 10/19/23 11:15 Temperature 98.4 F Pulse Rate Pulse Rate [Pulse Oximeter] 66 Respiratory Rate 16 Blood Pressure Blood Pressure [Ri ght Upper Arm] 150/81 H Pulse Oximetry 97 92 92 Oxygen Delivery Me thod Room Air Room Air Room Air Oxygen Flow Rate 10/19/23 11:15 10/19/23 11:15 10/19/23 11:55 Temperature Pulse Rate 64 Pulse Rate [Pulse Oximeter] Respiratory Rate Blood Pressure Blood Pressure [Ri ght Upper Arm] Pulse Oximetry 96 95 98 Oxygen Delivery Me thod Nasal Cannula Oxygen Flow Rate 2 10/19/23 11:56 10/19/23 11:57 10/19/23 12:00 Temperature Pulse Rate 64 63 64 Pulse Rate [Pulse Oximeter] Respiratory Rate Blood Pressure 154/88 H Blood Pressure [Ri ght Upper Arm] Pulse Oximetry 96 96 96 Oxygen Delivery Me thod Oxygen Flow Rate 10/19/23 12:02 10/19/23 12:15 10/19/23 12:17 Temperature Pulse Rate 64 61 65 Pulse Rate [Pulse Oximeter] Respiratory Rate Blood Pressure 146/84 H 153/90 H Blood Pressure [Ri ght Upper Arm] Pulse Oximetry 97 96 96 Oxygen Delivery Me thod Oxygen Flow Rate 10/19/23 12:30 10/19/23 12:32 10/19/23 12:45 Temperature Pulse Rate 64 64 72 Pulse Rate [Pulse Oximeter] Respiratory Rate Blood Pressure 153/82 H Blood Pressure [Ri ght Upper Arm] Pulse Oximetry 98 98 91 Oxygen Delivery Me thod Oxygen Flow Rate 10/19/23 12:47 10/19/23 12:48 10/19/23 12:50 Temperature Pulse Rate 80 80 78 Pulse Rate [Pulse Oximeter] Respiratory Rate Blood Pressure 211/106 H 185/102 H Blood Pressure [Ri ght Upper Arm] Pulse Oximetry 92 92 91 Oxygen Delivery Me thod Oxygen Flow Rate 10/19/23 12:56 10/19/23 12:57 10/19/23 13:00 Temperature Pulse Rate 73 71 76 Pulse Rate [Pulse Oximeter] Respiratory Rate Blood Pressure 171/89 H Blood Pressure [Ri ght Upper Arm] Pulse Oximetry 90 90 94 Oxygen Delivery Me thod Oxygen Flow Rate 10/19/23 13:03 10/19/23 13:15 10/19/23 13:17 Temperature Pulse Rate 73 75 77 Pulse Rate [Pulse Oximeter] Respiratory Rate Blood Pressure 159/92 H 176/86 H Blood Pressure [Ri ght Upper Arm] Pulse Oximetry 94 94 94 Oxygen Delivery Me thod Oxygen Flow Rate 10/19/23 13:30 10/19/23 13:32 Temperature Pulse Rate 73 Pulse Rate [Pulse Oximeter] Respiratory Rate Blood Pressure 172/84 H Blood Pressure [Ri ght Upper Arm] Pulse Oximetry 95 Oxygen Delivery Me thod Oxygen Flow Rate Course Vital Signs Vital signs: Initial Vital Signs Pulse Rhythm Regular 10/19/23 10:45 Vital Signs Temperature 98.4 F 10/19/23 10:47 Pulse Rate 66 10/19/23 10:47 Respiratory Rate 16 10/19/23 10:47 Blood Pressure 150/81 H 10/19/23 10:47 Pulse Oximetry 97 10/19/23 10:47 Oxygen Delivery Method Room Air 10/19/23 10:47 Temperature 98.4 F 10/19/23 10:47 Pulse Rate 73 10/19/23 13:30 Respiratory Rate 16 10/19/23 10:47 Blood Pressure 172/84 H 10/19/23 13:32 Pulse Oximetry 95 10/19/23 13:30 Oxygen Delivery Method Nasal Cannula 10/19/23 11:15 Oxygen Flow Rate 2 10/19/23 11:15 Medications Administered Medications: Discontinued Medications Generic Name Dose Route Start Last Admin Trade Name Freq PRN Reason Stop Dose Admin Sodium Chloride 500 mls @ 500 mls/hr 10/19/23 11:20 10/19/23 12:36 0.9 % Sodium Chloride 500 Ml IV 10/19/23 12:19 Infused .Q1H ONE Infusion Tenecteplase 25 mg 10/19/23 11:21 10/19/23 11:36 Tenecteplase 5 Mg/Ml Inj 0.25 mg/kg (25 mg) 10/19/23 11:22 25 mg IVP Administration ONCE ONE Medical Decision Making MDM Narrative Medical decision making narrative: 68-year-old white male with a history of embolic stroke after carotid endarterectomy now with a stunned appearance with inability to follow command with arm usage and weakness bilaterally. Discussed the stroke neurology Dr. Bell who will evaluate the patient now. CT CTA has been done. Am trying to get results from [facility]. Stroke code was called and this would be a critical care episode for least the 1st hour. Determinations will be regarding whether t and K would be used for stroke treatment. Stroke Neurology will give advice at this point. Accu-Chek is being done. Addendum 11:30 a.m.: The patient has met with Stroke Neurology, they at this point we had not gotten a CTA and we will do that stat. Will also proceed with tenecteplase as this is recommended by Stroke Neurology. Family was in agreement with the plan patient and his . Risks and benefits were explained. Will give some IV fluid as well. Oxygen oximetry gambling monitor. Patient will need transfer for tertiary care for stroke care Lab Data Labs: Lab Results 10/19/23 Range/Units 11:00 WBC 5.03 (4.50-11.00) K/uL RBC 4.87 (4.30-5.90) m/uL Hgb 14.6 (13.5-17.5) gm/dL Hct 45.5 (37.0-53.0) % MCV 93 (80-100) fL MCH 30 (26-34) pg MCHC 32 (32-36) gm/dL RDW Coeff of Yasmin 13.1 (11.5-15.5) % Plt Count 211 (140-440) K/uL Neut % (Auto) 56.9 (42.0-72.0) % Lymph % (Auto) 29.6 (20-44) % Riley % (Auto) 10.5 (0.0-11.0) % Eos % (Auto) 2.0 (0.0-7.0) % Baso % (Auto) 0.4 (0.0-3.0) % Neut # (Auto) 2.86 (1.7-7.0) K/uL Lymph # (Auto) 1.49 (0.90-2.90) K/uL Riley # (Auto) 0.50 (0.00-0.90) K/UL Eos # (Auto) 0.10 (0.00-0.50) K/uL Baso # (Auto) 0.02 (0.00-0.30) K/uL Abs Immat Gran (auto) 0.03 (0.00-0.30) K/uL Imm/Tot Granulo (auto) 0.6 % INR 0.95 (0.91-1.10) APTT 32 (23-33) Seconds Sodium 138 (135-149) mmol/L Potassium 4.0 (3.6-5.1) mmol/L Chloride 106 (96-114) mmol/L Carbon Dioxide 21 (20-32) mmol/L Anion Gap 11 (7-15) mEq/L BUN 15 (7-30) mg/dL Creatinine 0.6 (0.5-1.5) mg/dL Estimated Creat Clear 71.99 Estimated GFR 104 ml/min Glucose 93 (60-115) mg/dL Calcium 10.0 (8.4-10.6) mg/dL Troponin I < 0.01 L (0.01-0.04) ng/mL C-Reactive Protein < 0.5 L (0.5-1.0) mg/dL Discharge Plan Discharge Clinical Impression: Stroke Patient Disposition: Xfer Other Prescriptions: No Action aspirin 81 mg tablet,delayed release (DR/EC) 81 mg PO BID rosuvastatin 40 mg tablet 40 mg PO DAILY (DME) Accu-Chek Guide test strips Strip See Rx Instructions .ROUTE DAILY Qty: 10 Rx Instructions: As directed (DME) blood-glucose meter [Accu-Chek Guide Me Glucose Mtr] Misc See Rx Instructions .ROUTE DIRECTED Qty: 1 Rx Instructions: As directed (DME) lancets [Accu-Chek Softclix Lancets] Misc See Rx Instructions .ROUTE DAILY Qty: 100 Rx Instructions: As directed metoprolol succinate 50 mg tablet extended release 24 hr 50 mg PO DAILY metformin 500 mg tablet extended release 24 hr 1,000 mg PO QDAY nitroglycerin 0.4 mg tablet, sublingual 0.4 mg sublingual PRN acetaminophen 500 mg capsule 500 - 1,000 mg PO Q6H MDD 4000mg PRNQty: 100 0RF Stand Alone Forms: MyHealth Info Instructions
--- NOTE | 2023-10-19 11:27 | CT_ITS ---
Patient: JJ LY Facility:?[facility] Patient ID:?[id number] Site Patient ID:?[id number]. Site :?1955 Study:?CT-Neck Angio W/ 95CC ISOVUE 370 STROKE CODE-10/19/2023 11:57:15 AM Ordering Physician:Jaswant Final Report: CT ANGIOGRAM NECK DATE: 10/19/2023 CLINICAL HISTORY: Patient with focal neurological deficits. TECHNIQUE: Standard helical CT image acquisition of the neck up to the skull base after bolus intravenous contrast enhancement. 2D and 3D MIP images for post-processing were performed and interpreted on an independent workstation and 3D images were permanently archived. COMPARISON: CT same day. FINDINGS: The origins of the great vessels from the aortic arch are patent. The origin of the right vertebral artery demonstrates moderate narrowing. The origin of the left vertebral artery demonstrates mild narrowing. The common carotid arteries are patent. There is a moderate (63%) stenosis at the origin of the right internal carotid artery by NASCET criteria caused by calcified plaque with a 1.5mm residual lumen. There is a patent left carotid endarterectomy graft. The rest of the cervical segments of the internal carotid arteries are patent up to the skull base. The vertebral arteries are codominant. The cervical segments of the vertebral arteries are patent up to the skull base. The visualized lung apices are unremarkable. The thyroid gland is unremarkable. The soft tissues of the neck are unremarkable. There are degenerative changes in the cervical spine. IMPRESSION: 1. Moderate (63%) stenosis at the origin of the right internal carotid artery by NASCET criteria caused by calcified plaque with a 1.5mm residual lumen. 2. Patent left carotid endarterectomy graft. 3. Moderate right and mild left vertebral artery origin stenosis. Findings were communicated to Dr. Bell at 12:15 PM. Please note that all CT scans at this facility use dose modulation, iterative reconstruction, and/or weight-based dosing when appropriate to reduce radiation dose to as low as reasonably achievable. Dictated by: Tori Larson MD @ 10/19/2023 12:14:15 Signed by:?Tori Larson MD @10/19/2023 12:14:15 PM (Electronic Signature)
--- NOTE | 2023-10-19 11:27 | CT_ITS ---
Patient: JJ LY Facility:?[facility] Patient ID:?[id number] Site Patient ID:?[id number]. Site :?1955 Study:?CT-Head Angio W/ 95CC ISOVUE 370 STROKE CODE-10/19/2023 11:57:49 AM Ordering Physician:Jaswant Final Report: CT ANGIOGRAM HEAD DATE: 10/19/2023 CLINICAL HISTORY: Patient with focal neurological deficits. TECHNIQUE: Standard helical CT image acquisition through the intracranial circulation following intravenous administration of contrast material with bolus tracking. 2D and 3D MIP images for post-processing were performed and interpreted on an independent workstation and 3D images were permanently archived. COMPARISON: CT same day. FINDINGS: There is no proximal intracranial large vessel occlusion. There is no intracranial aneurysm. The right internal carotid artery is normal. The right middle cerebral artery and its branches are normal. The right anterior cerebral artery and its branches are normal. The left internal carotid artery is normal. The left middle cerebral artery and its branches are normal. The left anterior cerebral artery and its branches are normal. The anterior communicating artery is well visualized and appears normal. The right vertebral artery and PICA are normal. The left vertebral artery and PICA are normal. The vertebral arteries are codominant. The basilar artery is patent and appears normal. The right posterior cerebral artery is normal. The left posterior cerebral artery is normal. The visualized venous structures are patent. IMPRESSION: Patent proximal intracranial vasculature. Findings were communicated to Dr. Bell at 12:15 PM. Please note that all CT scans at this facility use dose modulation, iterative reconstruction, and/or weight-based dosing when appropriate to reduce radiation dose to as low as reasonably achievable. Dictated by: Tori Larson MD @ 10/19/2023 12:15:48 Signed by:?Tori Larson MD @10/19/2023 12:15:48 PM (Electronic Signature)
[2023-10-19 11:34] LABS: Chloride* 106 mmol/L (96-114); Sodium* 138 mmol/L (135-149)
--- OUTSIDE RECORDS SUMMARY | 2023-10-19 11:34 | XMS_ITS | Clinical Summary ---
Author Name Unknown Organization [employer] [facility] Address [place], [place] [address] Care Team Providers Care Wire Coating Operator Metal Name Role Phone Brian Garcia MD Primary Care Provider Hansel Buchanan MD Unavailable Soraya Wang Unavailable [phone] Allergies No known active allergies Medications Medication Sig Dispensed Refills Start Date End Date Status aspirin (ECOTRIN) 81 mg enteric coated tablet Take 1 tablet by mouth once daily with a meal. 0 06/03/2015 Active nitroglycerin (NITROSTAT) 0.4 mg sublingual tabletIndications:Co ronary artery disease due to lipid rich plaque PLACE 1 TABLET UNDER TONGUE EVERY 5 MINUTES IF NEEDED FOR CHEST PAIN. 25 Tablet 1 04/06/2022 Active blood-glucose meterIndications:Typ e 2 diabetes mellitus with other specified complication, without long-term current use of insulin (HC) Inject subcutaneous. Dispense meter, test strips, lancets covered by pt ins. E11.9 NIDDM type II - Test 1 time/day 1 Each 09/23/2022 Active blood sugar diagnostic (Blood Glucose Test) stripIndications:Typ e 2 diabetes mellitus with other specified complication, without long-term current use of insulin (HC) Test one time per day. 100 Each 3 09/23/2022 Active acetaminophen (TYLENOL) 325 mg tablet Take 2 Tablets (650 mg) by mouth every 6 hours. Max acetaminophen dose: 4000mg in 24 hrs. 0 10/10/2022 Active metoprolol succinate (TOPROL XL) 50 mg sustained-release tabletIndications:Co ronary artery disease due to lipid rich plaque Take 1 Tablet (50 mg) by mouth once daily. 90 Tablet 3 12/16/2022 Active rosuvastatin (CRESTOR) 40 mg tabletIndications:Mi xed hyperlipidemia TAKE 1 TABLET DAILY 90 Tablet 3 12/16/2022 Active CPAPIndications:JO (obstructive sleep apnea) CPAP machine [...] Frequency of use: Daily 1 Each 11 06/07/2023 Active metFORMIN (GLUCOPHAGE XR) 500 mg Extended-Release tabletIndications:Ty pe 2 diabetes mellitus with other specified complication, without long-term current use of insulin (HC) Take 2 Tablets (1,000 mg) by mouth once daily with evening meal. 180 Tablet 1 08/02/2023 Active empagliflozin (JARDIANCE) 10 mg tabletIndications:Ty pe 2 diabetes mellitus with other specified complication, without long-term current use of insulin (HC) Take 1 Tablet (10 mg) by mouth once daily. 30 Tablet 5 08/02/2023 Active Active Problems Problem Noted Date Diagnosed Date [...] Diagnosed Date Resolved Date Carotid artery stenosis 09/09/2015 04/3 Prediabetes 08/08/2015 09/14/2022 Coronary artery disease due to lipid rich plaque 06/13/2015 11/07/2017 Exertional angina 11/07/2017 Obstructive sleep apnea (adult) (pediatric) 11/07/2017 Overview: cpap Encounters Date Type Department Care Team Description 10/19/2023 Office Visit [facility] [address] [place] [id number] Treat, Kristi Harris DO Telehealth (Stroke code, matheny ) 08/15/2023 Orders Only [facility] Scanner 1 scan: (1-Ord) [facility], XR HIP LT 1V, 08/15/2023 08/15/2023 Orders Only [facility] Scanner 1 scan: (1-Ord) [facility], XR HIP LT POSTOP, 08/15/2023 08/04/2023 Orders Only [facility] [place] [address] [place] [address] Inocencia Guevara MD 1 scan: (1-Ord) [facility]D-EKG-08/02/23 08/02/2023 9:15 AM TABLE ASSEMBLER Preop Visit [facility] [address] [place] [address] Brian Garcia MD Preoperative Exam (08/15/23 Left Hip Replacement/[facility]/Dr. Gamble ); Follow Up (Medication refills /Diabetes ) 08/02/2023 8:30 AM TABLE ASSEMBLER Office Visit [facility] [place] [address] [place] [address] Inocencia Guevara MD Follow Up (Coronary artery disease involving [place] coronary artery of [place] heart without angina pectoris) 08/02/2023 Telephone [facility] [address] [place] [address] Brian Garcia MD Follow Up 08/01/2023 Travel from Last 3 Months Immunizations Name Administration Dates Next Due COVID-19 vaccine (PhoneGuard-Bio NTech 30mcg/0.3mL) FERN DEUTSCH 05/21/2021,10/07/2020,09/16/2020 Influenza, High-dose Inactivated 06/01/2019 Influenza, High-dose Quadriv alent Inactivated 04/25/2020 Influenza, IIV4 08/29/2018 Influenza, Inactivated AIIV4 (Age 65+ Years) Preserv Free 06/11/2022 Pneumococcal Poly,23-Valent (Pneumovax) 06/11/20 Pneumococcal conj 13-Valent (Prevnar 13) 019 Tdap [...] Comments Blood Pressure 125/77 08/02/2023 9:15 AM TABLE ASSEMBLER Pulse 65 08/02/2023 9:15 AM TABLE ASSEMBLER Temperature 36.2 ??C (97.1 ??F) 08/02/2023 9:15 AM CS T Respiratory Rate 16 08/02/2023 9:15 AM TABLE ASSEMBLER Oxygen Saturation 98% 08/02/2023 9:15 AM TABLE ASSEMBLER Inhaled Oxygen Concentration - - Weight 105.2 kg (232 lb) 08/02/2023 9:15 AM TABLE ASSEMBLER Height 176.5 cm (5' 9.49) 08/02/2023 9:15 AM CS T Body Mass Index 33.78 08/02/2023 9:15 AM TABLE ASSEMBLER Plan of Treatment Health Maintenance Due Date Last Done Comments AAA screening age 65-74 2019 08/18/2017 COVID-19 vaccine series ( season) 2023 05/21/2021, 10/07/2020, 09/16/2020 Depression screening for age 12+ 12/17/2023 12/16/2022, 12/16/2022, 09/08/2021, Additional history exists Medicare Wellness for age 65+ 12/17/2023, 09/08/2021, 09/19/[address] (for lung CA) ag e 50-80 01/04/2024 01/03/2023 Fecal testing non-DNA (FIT,FOBT,iFOBT) for age 45-75 01/28/2024 01/27/2023, 09/10/2021, 01/04/2020, Additional history exists Tetanus booster 03/04/2024 03/04/2014 Influenza for age 65+ 03/11/2024 06/11/2022 , 04/25/2020, 06/01/2019, Additional history exists BMI (ht and wt on same day) for age 18+ 08/02/2024 08/02/2023, 12/16/2022, 11/18/2022, Additional history exists Lipids for age 45-75 07/07/2028 07/07/2023, 12/13/2022, 10/08/2022, Additional history exists Tdap Completed 03/04/2014 Hepatitis C screening for ag e 18-79 Completed 10/09/2018 Pneumococcal series for age 65+ Completed , 06/01/2019 Zoster (shingles) series for age 50+ Completed 01/05/2022, 09/17/2021 Medical Devices Implanted Type Area Center Receptionist Device Identifier Shelf Expiration Date Model / Serial / Lot Tissue Pericardium 0.8x8cm Xenosure - [id number] Implanted:Qty: 1 on 10/07/2022 by Roger Finn MD at [facility] Left: Carotid Artery [employer] 05/07/2028 0.8P8 / / [id number] Procedures Procedure Name Priority Date/Time Associated Diagnosis Comments SCAN-RADIOLOGY REPORT 08/15/2023 12:00 AM TABLE ASSEMBLER SCAN-RADIOLOGY REPORT 08/15/2023 12:00 AM TABLE ASSEMBLER EKG 12 LEAD Routine 08/04/2023 9:05 AM TABLE ASSEMBLER Coronary artery disease involving [place] coronary artery of [place] heart without angina pectoris POTASSIUM Routine 08/02/2023 9:53 AM TABLE ASSEMBLER Preop examination HEMOGLOBIN Routine 08/02/2023 9:53 AM TABLE ASSEMBLER Preop examination LIPID PANEL W REFLEX MEASURED LDL Routine 07/07/2023 8:49 AM TABLE ASSEMBLER Pure hypercholesterolemia Coronary artery disease involving [place] coronary artery of [place] heart without angina pectoris OCCULT BLOOD IFOBT STOOL Routine 01/27/2023 3:51 PM CDT Screening for colon cancer CT CHEST SCREENING LOW DOSE WO CONTRAST Routine 01/03/2023 7:43 AM CDT Personal history of tobacco use ANTI HCV Routine 10/09/2018 8:40 AM CDT Need for hepatitis C screening test US AORTA Routine 08/18/2017 8:08 AM TABLE ASSEMBLER Screening for AAA (abdominal aortic aneurysm) from Last 3 Months or Most Recently Relevant to Health Maintenance Results * SCAN-RADIOLOGY REPORT (08/15/2023 12:00 AM TABLE ASSEMBLER) Only the most recent of2 resultswithin the time period is included. Anatomical Region Laterality Modality Other Scanner OTHER * EKG 12 LEAD (08/04/2023 9:05 AM TABLE ASSEMBLER) Inocencia Guevara MD EKG ORD * HEMOGLOBIN (08/02/2023 9:53 AM TABLE ASSEMBLER) Pathologist [facility] HEMOGLOBIN 15.1 13.5 - 17.5 g/dL 08/02/2023 10:03 AM TABLE ASSEMBLER [facility] MCV 93 80 - 100 fL 08/02/2023 10:03 AM TABLE ASSEMBLER [facility] Blood BLOOD SPECIMEN / Unknown Venipuncture / Unknown 08/02/2023 9:53 AM TABLE ASSEMBLER 08/02/2023 9:54 AM TABLE ASSEMBLER Brian Garcia MD HEMATOLOGY [facility] [address] [place] [address], * POTASSIUM (08/02/2023 9:53 AM TABLE ASSEMBLER) Pathologist [facility] POTASSIUM 4.5 3.5 - 5.1 mmol/L 08/02/2023 5:42 PM TABLE ASSEMBLER [facility] Blood BLOOD SPECIMEN / Unknown Venipuncture / Unknown 08/02/2023 9:53 AM TABLE ASSEMBLER 08/02/2023 9:54 AM TABLE ASSEMBLER Brian Garcia MD CHEMISTRY [facility] [address] [place] [address], * LIPID PANEL W REFLEX MEASURED LDL (07/07/2023 8:49 AM TABLE ASSEMBLER) Pathologist [facility] CHOLESTEROL,TOTAL 148 100 - 199 mg/dL 07/07/2023 4:21 PM [facility] Comment: Cholesterol, Total Reference Ranges Desirable <200 mg/dL Borderline 200-239 mg/dL High >=240 mg/dL TRIGLYCERIDES 146 <150 mg/dL 07/07/2023 4:21 PM [facility] HDL CHOLESTEROL 57 >40 mg/dL 4:21 PM TABLE ASSEMBLER [facility] NON-HDL CHOLESTEROL 91 <145 mg/dl 07/07/2023 4:21 PM TABLE ASSEMBLER [facility] CHOL/HDL RATIO 2.60 <4.50 07/07/2023 4:21 PM TABLE ASSEMBLER [facility] LDL CHOLESTEROL 62 <=130 mg/dL 07/07/2023 4:21 PM TABLE ASSEMBLER [facility] VLDL CHOLESTEROL 29 <=30 mg/dL 07/07/2023 4:21 PM TABLE ASSEMBLER [facility] PROVIDER ORDERED STATUS FASTING 07/07/2023 4:21 PM TABLE ASSEMBLER [facility] Blood BLOOD SPECIMEN / Unknown Venipuncture / Unknown 07/07/2023 8:49 AM TABLE ASSEMBLER 07/07/2023 8:50 AM TABLE ASSEMBLER Soraya PERES CHEMISTRY [facility] [address] [place] [address], * OCCULT BLOOD IFOBT STOOL (01/27/2023 3:51 PM CDT) STOOL BLOOD ,IFOBT Negative Negative 02/02/2023 9:50 AM CDT [facility] Stool STOOL SPECIMEN / Unknown Non-Blood / Unknown 01/27/2023 3:51 PM CDT 01/31/2023 3:51 PM CDT Brian Garcia MD [facility]ATORY [facility] [address] [place] [address], * CT CHEST SCREENING LOW DOSE WO CONTRAST (01/03/2023 7:43 AM CDT) Anatomical Region Laterality Modality Computed Tomogra phy Impressions 01/03/2023 2:17 PM CDT 1. Negative for lung cancer screening purposes. Sequela of granulomatous change. 2. Extensive atherosclerotic disease particularly within the coronary arteries. LUNG-RADS CATEGORY: 2: Benign. RADIOLOGIST RECOMMENDATION: Continue annual screening with low-dose CT chest in 12 months. Please note that all CT scans at this facility use dose modulation, iterative reconstruction and/or weight-based dosing when appropriate to reduce radiation dose to as low as reasonably achievable. ?? Dictated by: Hansel Chi MD @01/03/2023 9:13:58 AM/CRL:prosperr Narrative 01/03/2023 2:17 PM CDT For Patients: As a result of the Cures Act, medical imaging exams and procedure reports are released immediately into your electronic medical record. ??You may view this report before your referring provider. ?? If you have questions, please contact your health care provider. CT CHEST SCREENING LOW DOSE WITHOUT CONTRAST, 01/03/2023 INDICATION: Lung cancer screening. History of smoking. High risk patient with greater than 20 pack-year smoking history. TECHNIQUE: Low-dose lung cancer screening non-contrast CT chest. Dose reduction techniques were used. COMPARISON: None. FINDINGS: NODULES: Small calcified granulomas are present on the left measuring up to 3.5 mm. LUNGS AND PLEURA: No infiltrate. No edema. No effusion. MEDIASTINUM: Dense calcifications are present in the aorta. No adenopathy. CORONARY ARTERY CALCIFICATION: Dense calcifications noted. LIMITED UPPER ABDOMEN: Normal. MUSCULOSKELETAL: No fracture. Brian Garcia MD CT * ANTI HCV (10/09/2018 8:40 AM CDT) HEPATITIS C ANTIBODY Non-React taqueria Non-React taqueria 10/09/2018 2:47 PM CDT [facility] Comment:Antibodies to HCV no t detected; does not exclude the possibility of exposure to HCV. Blood BLOOD SPECIMEN / Unknown Venipuncture / Unknown 10/09/2018 8:40 AM CDT 10/09/2018 8:41 AM CDT Brian Garcia MD SEND OUTS [facility] [address] [place] [address], [place] * US AORTA (08/18/2017 8:08 AM TABLE ASSEMBLER) Anatomical Region Laterality Modality Abdomen, AORTA Ultrasound 08/18/2017 8:12 AM TABLE ASSEMBLER Narrative 08/18/2017 8:12 AM TABLE ASSEMBLER INDICATION: Screening for abdominal aortic aneurysm. TECHNIQUE: Real-time grayscale imaging color Doppler interrogation of the abdominal aorta. Findings the following anteroposterior by transverse dimensions of the abdominal aorta were obtained: Proximal-2.6 x 2.6 cm. Mid-1.8 x 1.7 cm. Distal-2.0 x 2.0 cm. Right iliac-1.1 x 0.8 cm. Left iliac-1.3 x 1.0 cm. Mild atherosclerotic changes are appreciated. IMPRESSION: Mild atherosclerosis with no abdominal aortic aneurysm identified. Dictated by Christian Andrews DO @ Aug ??2017 ??8:12AM (Electronically Signed) Procedure Note Garrison Andrews DO - 08/18/2017 INDICATION: Screening for abdominal aortic aneurysm. TECHNIQUE: Real-time grayscale imaging color Doppler interrogation of the abdominalaorta. Findings the following anteroposterior by transverse dimensions ofthe abdominal aorta were obtained: Proximal-2.6 x 2.6 cm. Mid-1.8 x 1.7 cm. Distal-2.0 x 2.0 cm. Right iliac-1.1 x 0.8 cm. Left iliac-1.3 x 1.0 cm. Mild atherosclerotic changes are appreciated. IMPRESSION: Mild atherosclerosis with no abdominal aortic aneurysm identified. Dictated by Christian Andrews DO @ Aug 18 2017 8:12AM (Electronically Signed) Brian Garcia MD from Last 3 Months or Most Recently Relevant to Health Maintenance Advance Directives * Full Code (Latest Code Status on File) Date Activated Date Inactivated Comments 10/07/2022 1:31 PM 10/11/2022 2:06 PM Question Answer Comments Code Status Discussion: Reviewed Preferences * Full Code Date Activated Date Inactivated Comments 10/07/2022 6:00 AM 10/07/2022 1:31 PM Question Answer Comments Code Status Discussion: Unable to Assess Preferences, Provider to review later * Full Code Date Activated Date Inactivated Comments 06/09/2015 7:34 AM 06/10/2015 11:25 AM Care Teams Wire Coating Operator Metal Relationship Specialty Start Date End Date Brian Garcia MD [address] [place] [address] PCP - General Family Practice 07/29/15 Hansel Buchanan MD [address] [place] [address] Cardiovascular Disease 05/24/15 Soraya Wang PA [address] [place] [address] Physician Machine Candle Molder 11/04/20
--- OUTSIDE RECORDS SUMMARY | 2023-10-19 11:35 | XMS_ITS | Continuity of Care Document ---
Author Name Unknown Organization [facility] Address [address] [place] [address] Phone Care Team Providers Care Fumigator And Sterilizer Name Role Phone Ten Candelario MD Unavailable [...] C, [address], [place], [id number], [place] tel:[phone] [facility] No Information nAdree Caal. [facility], [address] [place] [address], [address], [place], [place], [id number] , [place]. tel:[phone] Office/Outpat ient Visit,Est, Mod [facility], [address], [place], [place], [id number], [place] tel:[phone] [facility] [place] Spinal stenosis, lumbar region with neurogenic claudication Brandy Ruggiero. [facility], [address], [place], [address], [place]. tel:[phone] Referring Provider: Brian Barros, [facility] [address] [facility], [place], [address]. tel:[phone] Office/Outpat ient Visit,New, Mod [facility], [address], [place], [place], [id number], [place] tel:[phone] [facility] Spinal stenosis, lumbar region with neurogenic claudication Brandy Ruggiero. [facility], [address], [place], [address], [place]. tel:[phone] Referring Provider: Ashish Lester, [facility] [address] [facility], [place], [address]. tel:[phone] [facility], [address], [place], [place], [id number], [place] tel:[phone] [facility] Spinal stenosis, lumbar region with neurogenic claudication Brandy Ruggiero. [facility], [address], [place], [address], [place]. tel:[phone] Family History Family Member Type Diagnosis Age At Onset No Information Payers Payer name Insurance type Covered alliance party ID Authorisabelchantale mayes(s) BCBS [id number] [facility] [id number] Social History Type Description Quantity Date Captured [...]
[2023-10-19] MEDS: 0.9 % SODIUM CHLORIDE 500 ML 500 ML IV (11:36)
[2023-10-19] MEDS: TENECTEPLASE 5 MG/ML inj 25 MG IVP (11:36)
[2023-10-19 11:37] LABS: Anion Gap 11 mEq/L (7-15); Blood Urea Nitrogen* 15 mg/dL (7-30); Carbon Dioxide* 21 mmol/L (20-32); Creatinine* 0.6 mg/dL (0.5-1.5); Est. Creatinine Clearance* 71.99; Estimated Glomerular Filt Rate 104 ml/min; INR 0.95 (0.91-1.10); Prothrombin Time 13.2 Seconds
[2023-10-19 11:38] LABS: Basophils Absolute Auto 0.02 K/uL (0.00-0.30); Basophils Percent Auto 0.4 % (0.0-3.0); Glucose* 93 mg/dL (60-115); Hematocrit 45.5 % (37.0-53.0); Hemoglobin* 14.6 gm/dL (13.5-17.5); Immature Granulocytes Abs Auto 0.03 K/uL (0.00-0.30); Immature Granulocytes Pct Auto 0.6 %; Lymphocytes Absolute Auto 1.49 K/uL (0.90-2.90); Lymphocytes Percent Auto 29.6 % (20-44); Mean Corpuscular HGB Conc 32 gm/dL (32-36); Mean Corpuscular Hemoglobin 30 pg (26-34); Mean Corpuscular Volume 93 fL (80-100); Monocytes Percent Auto 10.5 % (0.0-11.0); Neutrophils Absolute Auto 2.86 K/uL (1.7-7.0); Neutrophils Percent Auto 56.9 % (42.0-72.0); Partial Thromboplastin Time* 32 Seconds (23-33); Platelet Count* 211 K/uL (140-440); RDW Coefficient of Variation % 13.1 % (11.5-15.5); Red Blood Count 4.87 m/uL (4.30-5.90); White Blood Count* 5.03 K/uL (4.50-11.00)
[2023-10-19 11:40] LABS: Slide Review Reflex No
[2023-10-19 11:51] LABS: C Reactive Protein* < 0.5 mg/dL (0.5-1.0); Troponin I* < 0.01 ng/mL (0.01-0.04)
--- NOTE | 2023-10-19 13:42 | ED.NURSE ---
Patient transfered via [facility] to [place] [address].
== END 2023-10-19 13:10 | disposition other institution (70) ==
LOC: ED 11:33
PROVIDERS: Emergency Provider Family Medicine; PCP Family Medicine
DX: I63.9 Cerebral infarction, unspecified (principal)
CPT/HCPCS: 36415; 70450; 70496; 70498; 80048; 84484; 85025; 85610; 85730; 86140; 94761; 96374; 99285; 99291; 99292; G0508; J3101; J7030; Q9967